=== PATIENT | female | born 1950 | race Caucasian/White ===

== ENCOUNTER → 2016-11-17 | Outpatient (CLI) | payer MEDICARE, BC ==
[2016-11-17 09:54] LABS: Basophils % (A) 1 %; CH 29.2; CHCM 33.2; Eosinophils # (A) 0.1 k/uL (0-0.7); Eosinophils % (A) 3 %; HCT 42.7 % (34.0-46.0); HDW 2.36; HGB 14.2 gm/dL (11.4-16.0); Luc # (Auto) 0.13; Luc % (Auto) 3; Lymphocytes # (A) 0.8 k/uL (1.0-4.8); Lymphocytes % (A) 17 %; MCH 29.5 pg (25.0-35.0); MCHC 33.3 g/dL (31.0-37.0); MCV 88.6 fL (80.0-100.0); Mean Platelet Volume 7.1; Monocytes # (A) 0.3 k/uL (0-1.0); Monocytes % (A) 7 %; Neutrophils # (A) 3.1 k/uL (1.3-7.7); Neutrophils % (A) 69 %; RBC 4.82 m/uL (3.80-5.40); RDW 13.2 % (11.5-15.5); WBC 4.4 k/uL (3.8-10.6); WBC (Perox) 4.74
[2016-11-17 10:17] LABS: ALT 32 U/L (9-52); AST 25 U/L (14-36); Alkaline Phosphatase 85 U/L (38-126); Anion Gap 8 mmol/L; Blood Urea Nitrogen 13 mg/dL (7-17); Calcium 9.2 mg/dL (8.4-10.2); Carbon Dioxide 25 mmol/L (22-30); Chloride 106 mmol/L (98-107); Cholesterol 211 mg/dL (<200); Glucose 98 mg/dL (74-99); HDL Cholesterol 65 mg/dL (40-60); Non-African American GFR(MDRD) >60 (>60 ml/min/1.73 sqM); Potassium 4.2 mmol/L (3.5-5.1); Sodium 139 mmol/L (137-145); Total Bilirubin 1.2 mg/dL (0.2-1.3); Total Protein 5.7 g/dL (6.3-8.2)
[2016-11-17 11:05] LABS: Hepatitis C Virus IgG Ab Negative (Negative)
[2016-11-17 11:21] LABS: C Reactive Protein 5.5 mg/L (<10.0)
[2016-11-17 14:29] LABS: Erythrocyte Sedimentation Rate 8 mm/hr (0-20)
[2016-11-17 16:36] LABS: Gliadin AB IgA, Deaminated NEGATIVE (NEGATIVE); Gliadin AB IgG, Deaminated NEGATIVE (NEGATIVE); Gliadin AB IgG, Unit <0.4 U/mL; Tis Transglutaminase IgA Unit <0.5 AI; Tis Transglutaminase IgG Unit <0.8 U/mL
== END | disposition home or self-care (01) ==
LOC: LABWHC1 09:18
PROVIDERS: ATTEND Internal Medicine
DX: K58.9 Irritable bowel syndrome, unspecified (principal); N95.1 Menopausal and female climacteric states; E55.9 Vitamin D deficiency, unspecified; Z13.6 Encounter for screening for cardiovascular disorders
CPT/HCPCS: 36415; 80053; 80061; 82306; 83516; 84443; 85025; 85652; 86140; 86803

== ENCOUNTER → 2016-12-07 | Outpatient (CLI) | payer MEDICARE, BC ==
--- NOTE | 2016-12-07 09:33 | MM ---
Reason for exam: additional evaluation requested from abnormal screening. Last mammogram was performed less than 1 month ago. History: Patient is postmenopausal, has history of endometrial cancer at age 65, and has history of other cancer at age 46. Benign excisional biopsy of both breasts, 1970. Took hormonal contraceptives for 1 year beginning at age 20. Physical Findings: Nurse did not find any significant physical abnormalities on exam. MG 3D Work Up W/Cad RT CCRM, CCRL, and spot compression CC view(s) were taken of the right breast. Prior study comparison: December 02, 2016, bilateral MG 3d screening mammo w/cad. November 28, 2014, bilateral MG screening mammo w CAD. The breast tissue is heterogeneously dense. This may lower the sensitivity of mammography. Finding: There is a typically benign equal density (isodense) mass located 6 cm from the nipple in the right breast. No persistant spicutation. No significant changes in finding since November 28, 2014. These results were verbally communicated with the patient and result sheet given to the patient on 12/07/16. ASSESSMENT: Benign, BI-RAD 2 RECOMMENDATION: Return to routine screening mammogram schedule for both breasts.
== END ==
LOC: RADMAMWWP 08:16
PROVIDERS: ATTEND Internal Medicine
DX: R92.8 Other abnormal and inconclusive findings on diagnostic imaging of breast (principal)
CPT/HCPCS: G0206; G0279

== ENCOUNTER → 2018-02-13 | Outpatient (CLI) | payer MEDICARE ==
--- NOTE | 2018-02-13 16:07 | BD ---
EXAMINATION TYPE: Axial Bone Density DATE OF EXAM: 02/13/2018 CLINICAL HISTORY: Osteoporosis screening. Postmenopausal female. Height: 62 inches Weight: 117 FRAX RISK QUESTIONS: Alcohol (3 or more units per day): no Family History (Parent hip fracture): no Glucocorticoids (More than 3mos): no (Ex: prednisone, prednisolone, methylprednisolone, dexamethasone, and hydrocortisone). History of Fracture in Adulthood: no Secondary Osteoporosis: 1. Type 1 Diabetes: no 2. Hyperthyroidism: no 3. Menopause before 45: yes, age 46 4. Malnutrition: no 5. Chronic liver disease: no Rheumatoid Arthritis: no Current Tobacco Use: no RISK FACTORS HISTORY OF: Family History of Osteoporosis: unsure Active: yes Diet low in dairy products/other sources of calcium: no Postmenopausal woman: yes Take estrogen and/or progesterone medications: not now How long: hormonal contraceptives about 1 year Lost more than 2 inches in height since high school: yes Frequent falls: no Poor Health: somewhat Hyperparathyroidism: no Adrenal Insufficiency: no MEDICATIONS: Prednisone or other steroids: no Thyroid Medications: no Osteoporosis Medications: no Additional Medications: Vitamin D with calcium Additional History: cervical CA age 65, non-Hodgkins lymphoma-chemo & radiation, osteoarthritis, dege nerative disc disease, lower back "swells" sometimes, HX "tumors" lower back but no back surgery.. EXAM MEASUREMENTS: Bone mineral densitometry was performed using the [employer] System. Bone mineral density as measured about the Lumbar spine is: ----- L1-L4(G/cm2): 1.067 T Score Values are as follows: ----- L2: -1.3 ----- L3: -1.1 ----- L4: -0.1 ----- L1-L4: -0.9 Bone mineral density not previously done at this facility; done elsewhere some years ago Bone mineral density about the R hip (g/cm2): 0.736 Bone mineral density about the L hip (g/cm2): 0.744 T Score values are as follows: -----R Neck: -2.2 -----L Neck: -2.1 -----R Total: -2.2 -----L Total: -2.1 Bone mineral density not previously done at this facility; done elsewhere some years ago IMPRESSION: Osteopenia (T Score between -2.5 and -1). There is slightly increased risk of fracture and the patient may be considered for treatment. Re-Screen 2-5 years. NOTE: T-SCORE=SD OF THE YOUNG ADULT MEAN.
--- NOTE | 2018-02-14 13:09 | MM ---
Reason for exam: screening (asymptomatic). Last mammogram was performed 1 year and 2 months ago. History: Patient is postmenopausal, has history of endometrial cancer at age 65, and has history of other cancer at age 46. Benign excisional biopsy of both breasts, 1970. Took hormonal contraceptives for 1 year beginning at age 20. Physical Findings: A clinical breast exam by your physician is recommended on an annual basis and results should be correlated with mammographic findings. MG 3D Screening Mammo W/Cad Bilateral CC and MLO view(s) were taken. Prior study comparison: December 07, 2016, right breast MG 3d work up w/cad RT. December 02, 2016, bilateral MG 3d screening mammo w/cad. The breast tissue is heterogeneously dense. This may lower the sensitivity of mammography. No significant changes when compared with prior studies. ASSESSMENT: Benign, BI-RAD 2 RECOMMENDATION: Routine screening mammogram of both breasts in 1 year.
== END | disposition home or self-care (01) ==
LOC: RADMAMWWP 11:58
PROVIDERS: ATTEND Obstetrics & Gynecology
DX: Z12.31 Encounter for screening mammogram for malignant neoplasm of breast (principal); M85.80 Other specified disorders of bone density and structure, unspecified site; Z78.0 Asymptomatic menopausal state
CPT/HCPCS: 77063; 77067; 77080

== ENCOUNTER → 2018-02-13 | Outpatient (CLI) | payer MEDICARE ==
--- NOTE | 2018-02-14 08:03 | MR ---
MR brain without contrast HISTORY: Headache Multiplanar multisequence imaging through the brain Comparison prior brain MRI dated 2011 There is no restricted diffusion. Focus of hyperintensity is present on inversion recovery T2-weighte d sequences within the region of the external capsule on the right somewhat more conspicuous than on prior exam. There is no hemorrhage or hydrocephalus. There are normal vascular flow voids. Cerebellop ontine angles, corpus callosum, pituitary, cervical medullary junction are normal. Orbits show symmet art appearance. Mucosal disease present within the maxillary sinus, ethmoid air cells. IMPRESSION: No significant interval change. Indeterminate focus of white matter demyelination of ques tionable clinical significance is essentially stable.
== END | disposition home or self-care (01) ==
LOC: RADMRIMAIN 15:40
PROVIDERS: ATTEND Internal Medicine
DX: R51 Headache (principal)
CPT/HCPCS: 70551

== ENCOUNTER → 2019-11-24 | Outpatient (CLI) | payer MEDICARE, BC ==
--- NOTE | 2019-11-26 06:22 | PE ---
EXAMINATION TYPE: PET CT fusion skull to thigh DATE OF EXAM: 11/24/2019 COMPARISON: Whole body CT November 09, 2019 and older studies HISTORY: Non-Hodgkin lymphoma diagnosed 1996 all over body per patient. TECHNIQUE: Following the intravenous administration of 10.86 mCi of F-18 FDG, whole body images are performed from the skull base to the midthigh. Images are reviewed on the computer in the coronal, a xial, and sagittal planes. Reconstructed rotating images are created on independent workstation and reviewed on the computer. A noncontrast CT is performed in conjunction with the PET scan. SCAN: Subsequent Scan FINDINGS: Median SUV mediastinum: 1.62 Median SUV liver: 2.27 SKULL BASE AND NECK: No areas of abnormal hypermetabolic uptake. CHEST, MEDIASTINUM, AND HILAR REGION: Asymmetric left apical masslike consolidation or scarring exten ding medially redemonstrated near axial image 79. Additional focal scarring or atelectasis medial lef t lower lung axial image 132 is redemonstrated. Tiny right pleural effusion is ametabolic. No suspicious areas of abnormal hypermetabolic uptake or adenopathy. ABDOMEN AND PELVIS: Normal excretion is present. No suspicious areas of abnormal hypermetabolic uptak e. Liver and spleen felt within normal limits in size without suspicious hypermetabolic uptake. OSSEOUS STRUCTURES: No areas of suspicious hypermetabolic uptake. OTHER CT: The 6 to 7 mm posterior left breast nodule or nodular tissue axial image 129 does not show abnormal hypermetabolic uptake. Slightly larger lesion noted right breast axial image 127 is also derrick tabolic. Evidence of old granulomatous disease with calcified right hilar lymph nodes and a few punctate calci fications scattered throughout the spleen. Cholecystectomy clips are noted. Left subclavian Mediport catheter terminates in SVC. Uterus is noted surgically absent. Slight scoliotic curvature with multilevel spurring the spine. Mild to moderate calcified plaque of a bdominal aortic stents into branch vessels. IMPRESSION: No areas of suspicious hypermetabolic uptake or enlarged adenopathy to suggest active carlos plastic or lymphoma recurrence. Advise mammogram and ultrasound follow-up for areas of concern in bot h breasts.
== END | disposition home or self-care (01) ==
LOC: RADPETMAIN 08:50
PROVIDERS: ATTEND Internal Medicine
DX: C85.99 Non-Hodgkin lymphoma, unspecified, extranodal and solid organ sites (principal)
CPT/HCPCS: 78815; A9552

== ENCOUNTER → 2019-12-12 | Outpatient (CLI) | payer MEDICARE, BC ==
--- NOTE | 2019-12-13 08:05 | MM ---
Reason for exam: additional evaluation requested from prior study. Last mammogram was performed 1 year and 10 months ago. History: Patient is postmenopausal, has history of endometrial cancer at age 65, and has history of other cancer at age 46. Benign excisional biopsy of both breasts, 1970. Took hormonal contraceptives for 1 year beginning at age 20. Physical Findings: Nurse did not find any significant physical abnormalities on exam. MG 3D Diag Mammo W/Cad TIFFANI Bilateral CC and MLO view(s) were taken. Prior study comparison: February 13, 2018, bilateral MG 3d screening mammo w/cad. December 07, 2016, right breast MG 3d work up w/cad RT. The breast tissue is heterogeneously dense. This may lower the sensitivity of mammography. Benign calcifications. There is chronic nodularity bilaterally. These results were verbally communicated with the patient and result sheet given to the patient on 12/12/19. ASSESSMENT: Benign, BI-RAD 2 RECOMMENDATION: Routine screening mammogram of both breasts in 1 year.
--- NOTE | 2019-12-13 08:08 | USB ---
Reason for exam: additional evaluation requested from prior study. History: Patient is postmenopausal, has history of endometrial cancer at age 65, and has history of other cancer at age 46. Benign excisional biopsy of both breasts, 1970. Took hormonal contraceptives for 1 year beginning at age 20. US Breast BILAT Technologist: Jacqueline Kendall Right complete breast ultrasound includes all four quadrants, the retroareolar region and axilla. Finding demonstrates a 0.4 x 0.5 x 0.3cm hypoechoic lesion at 10 o'clock. Left complete breast ultrasound includes all four quadrants, the retroareolar region and axilla. Finding demonstrates a 0.5 x 0.5 x 0.3cm cystic lesion at 10 o'clock and a 1.0 x 0.7 x 0.3cm cystic lesion at 1 o'clock. These results were verbally communicated with the patient and result sheet given to the patient on 12/12/19. ASSESSMENT: Suspicious, BI-RAD 4 RECOMMENDATION: Ultrasound core biopsy of the right breast. (10 o'clock) Called Dr. Duarte's office with mammographic findings and has scheduled an appointment for the patient for 01/04/20 at 11:[address] Mirza. Biopsy scheduled for 01/07/20 at 10:30. PRELIMINARY REPORT CALLED AND FAXED TO DR. MIRZA ON 12/13/19.
== END | disposition home or self-care (01) ==
LOC: RADMAMWWP 14:17
PROVIDERS: ATTEND Internal Medicine
DX: R93.89 Abnormal findings on diagnostic imaging of other specified body structures (principal); R94.8 Abnormal results of function studies of other organs and systems
CPT/HCPCS: 77066; 76641; G0279; 77062

== ENCOUNTER → 2019-12-21 | Outpatient (CLI) | payer MEDICARE, BC ==
[2019-12-21 12:49] LABS: HCT 42.1 % (34.0-46.0); HGB 13.9 gm/dL (11.4-16.0); MCH 30.4 pg (25.0-35.0); MCHC 32.9 g/dL (31.0-37.0); MCV 92.2 fL (80.0-100.0); Mean Platelet Volume 7.5; Platelet Count 232 k/uL (150-450); RBC 4.57 m/uL (3.80-5.40); RDW 13.2 % (11.5-15.5)
[2019-12-21 22:42] LABS: African American GFR (CKD) 67.5 (60.0-200.0); Albumin/Globulin Ratio 2.86 (1.60-3.17); Anion Gap 7.8 mmol/L (4.00-12.00); Calcium 9.4 mg/dL (8.7-10.3); Carbon Dioxide 28.2 mmol/L (21.6-31.8); Globulin 1.4 g/dL (1.6-3.3); Non-African American GFR(CKD) 58.2 (60.0-200.0); Total Protein 5.4 g/dL (6.2-8.2)
[2019-12-21 22:52] LABS: Prolactin 4.2 ng/mL (2.8-29.2); T4, Free (Free Thyroxine) 1.1 ng/dL (0.80-1.80)
== END | disposition home or self-care (01) ==
LOC: LABWHC1 11:44
PROVIDERS: ATTEND Internal Medicine Endocrinology, Diabetes & Metabolism
DX: R23.2 Flushing (principal); R53.83 Other fatigue
CPT/HCPCS: 36415; 80053; 82024; 82533; 82607; 84146; 84439; 84443; 84481; 85027

== ENCOUNTER → 2019-12-21 | Outpatient (CLI) | payer MEDICARE, BC ==
[~2019-12-21] MED LIST: SODIUM CHLORIDE 0.9% 500 ML 500 ML in EMPTY BAG 1 BAG IV PRN
[2019-12-21 10:56] VITALS: BP 151/78; PULSE 79; RESP 16; TEMP 98.2
== END | disposition home or self-care (01) ==
LOC: PROCWHC3 10:09 → EEVIPCON 10:30
PROVIDERS: ATTEND Internal Medicine Endocrinology, Diabetes & Metabolism
DX: R23.2 Flushing (principal)
CPT/HCPCS: 83835

== ENCOUNTER → 2020-01-04 | Outpatient (CLI) | payer MEDICARE, BC ==
[2020-01-04 11:14] VITALS: BP 126/72; PULSE 79; RESP 18; TEMP 98.3
--- NOTE | 2020-01-04 11:39 | P.GSHP ---
History of Present Illness H&P Date: 01/04/20 Chief Complaint: abnormal breast ultrasound Sandra is a 69 year old white female seen in consultation for Dr. Galo with a complaint of an abnormal right breast ultrasound. She had a bilateral mammogram performed on . This was felt to be benign BIRADS 2. She also had a bilateral breast ultrasound performed on the same date which revealed a 0.5 x 0.4 cm lesion at 10:00. In the left breast she was noted to have several cystic lesions. The findings were very suspicious BIRADS 4 and ultrasound-guided core biopsy of the right breast was recommended. She has a history of non-hodgkins lymphoma diagnosed in 1995. She had a PET scan performed on which did not show any suspicious hypermetabolic uptake or enlarged adenopathy to suggest active neoplastic disease or lymphoma recurrence. She has been in remission for 18 years. She had a recent complaint of dizzyness and weight loss, (21 pounds). She states this has improved, she has not gained any weight back at this time. She does not feel any lumps masses or nodules in either breast. She is not complaining of any breast pain. She is not complaining of any nipple discharge or skin changes. She has not noted any enlarged lymph nodes in her neck axilla or groin. Caffeine: 1 cup coffee/day Nicotine: Negative Theophylline: Occasional Family history: patient: non hodgkins lymphoma, SCC female organs (had a LENNY) 2 cousins maternal: non hodgkins lymphoma daughter: non hodgkins lymphoma Hormonal History: menarche: 17 , misscarriage:2, breast fed: yes, age at first : 19, tubal at 25 menopause: 46 secondary to chemo BCP: none hormones: none Surgical history: 1. Total abdominal hysterectomy 2. Breast biopsy benign 3. Appendectomy 4. Abdominal hernias 5. Pleurodesis secondary to pleural fluid collecting in the lungs 6. Cholecystectomy 7. Tubal ligation Medical History: none Social History: Attending: Negative Alcohol: Occasional Drugs: Negative - Constitutional Constitutional: Denies chills, Denies fever - EENT Eyes: bilateral blurred vision, denies pain Ears: deny: decreased hearing, tinnitus Ears, nose, mouth and throat: Denies headache, Denies sore throat - Breasts Breasts: bilateral: as per HPI - Cardiovascular Cardiovascular: Reports shortness of breath, Denies chest pain - Respiratory Respiratory: Denies cough, Denies 7 - Gastrointestinal Gastrointestinal: Denies abdominal pain, Denies diarrhea, Denies nausea, Denies vomiting - Genitourinary (Female) Genitourinary: Denies dysuria, Denies hematuria - Menstruation Menstruation: Reports post hysterectomy - Musculoskeletal Comment: lymphedema left leg - Integumentary Integumentary: Denies pruritus, Denies rash - Neurological Neurological: Denies numbness, Denies weakness - Psychiatric Psychiatric: Denies anxiety, Denies depression - Endocrine Endocrine: Reports fatigue, Reports weight change - Hematologic/Lymphatic Comment: history of non hodgkins lymphoma - Allergic/Immunologic Allergic/Immunologic: Reports as per HPI Past Medical History Past Medical History: Cancer, Deep Vein Thrombosis (DVT) Additional Past Medical History / Comment(s): left leg Lymphedema, migraines, heart "regurgitaion", non hodgkins lymphoma, History of Any Multi-Drug Resistant Organisms: None Reported Past Surgical History: Appendectomy, Breast Surgery, Cholecystectomy, Hernia Repair, Hysterectomy, Tubal Ligation Additional Past Surgical History / Comment(s): PORT-A-CATH STILL IN PLACE. EXP LAPARATOMY (ABD TUMOR RELATED TO LYMPHOMA). BILATERAL BREAST BX -NEG. , hx chest tube lung surgery Past Anesthesia/Blood Transfusion Reactions: No Reported Reaction Additional Past Anesthesia/Blood Transfusion Reaction / Comment(s): awake during general anesthesia for a surgery Smoking Status: Never smoker - Past Family History Mother Family Medical History: No Reported History Medications and Allergies Home Medications Medication Instructions Recorded Confirmed Type SUMAtriptan succinate [Imitrex] 50 mg PO DAILY PRN 12/08/15 01/04/20 History Cimetidine [Tagamet] 200 mg PO QID 12/19/19 01/04/20 History Allergies Allergy/AdvReac Type Severity Reaction Status Date / Time morphine Allergy Severe Nausea & Verified 01/04/20 11:07 Vomiting cholestyramine Allergy Rash/Hives Unverified 01/04/20 11:07 meperidine HCl [From Demerol] Allergy Unknown Verified 01/04/20 11:07 pantoprazole Allergy Rash/Hives Unverified 01/04/20 11:07 warfarin sodium Allergy Unknown Verified 01/04/20 11:07 [From Coumadin] Surgical - Exam BMI 21.9 - General well developed, well nourished, no distress - Eyes normal ocular movement - ENT no hearing loss, no congestion - Neck no masses, trachea midline - Respiratory normal expansion, normal respiratory effort, clear to auscultation - Cardiovascular Rhythm: regular Heart Sounds: normal: S1, S2 - Abdomen Abdomen: soft, non tender, no guarding, no rigid, no rebound - Integumentary swelling left lower leg - Neurologic no disoriented, no combative - Musculoskeletal normal gait, normal posture - Psychiatric oriented to time, oriented to person, oriented to place, speech is normal, memory intact breast exam: BRA: 34B inspection: grade 2 ptosis bilateral palpation: Right breast: Multi-positional exam well-healed scar from prior surgery, fibrocystic changes Right axilla: No adenopathy of concern Left breast: Multi-positional exam no dominant masses or nodules of concern Left axilla: No adenopathy of concern Results Mammogram and ultrasound results reviewed Assessment and Plan Assessment: Impression: 1. prior history of non hodgkins lymphoma 2. Fibrocystic breast changes 3. Ultrasound abnormality right breast 4. 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 Ultrasound-guided core biopsy right breast 2. Continued medical management of medical conditions CC: Dr. Galo, Dr. Duarte Risks and benefits of the procedure of ultrasound core biopsy were discussed with the patient. Risks include but are not limited to bleeding, infection, r eaction to the anesthetic. Additionally the lesion could be discordant and a biopsy in the operating room could be recommended. She understands and wishes to proceed. encounter 30 minutes, > 50% of time in planning and counselling
== END | disposition home or self-care (01) ==
LOC: WWCWWP 10:57
PROVIDERS: ATTEND Surgery
DX: Z53.9 Procedure and treatment not carried out, unspecified reason (principal)

== ENCOUNTER → 2020-01-07 | Day surgery (SDC) | payer MEDICARE, BC ==
[2020-01-07 09:45] VITALS: RESP 16; TEMP 97.7
[2020-01-07 11:25] VITALS: BP 123/74; PULSE 79
--- NOTE | 2020-01-07 15:27 | USB ---
EXAMINATION TYPE: US biopsy breast VAD RT, MG post biopsy diagnostic mammo RT wo CAD DATE OF EXAM: 01/07/2020 CLINICAL HISTORY: 69-year-old female R92.8 Abnormal Mammogram. TECHNIQUE: Ultrasound guided core biopsy of 10:00 right breast. COMPARISON: 12/12/2019 12/02/2016 FINDINGS: The procedure of ultrasound guided core biopsy was explained to the patient. Benefits, alternatives, and risks were discussed. An informed consent was then obtained. The patient was placed in supine positioning for imaging and for the procedure. The overlying skin was prepped and draped in usual sterile fashion. Lidocaine was used as anesthetic into the skin and subcutaneous tissue up to area of concern in the right breast. A small 4 mm lesion at the 10:00 right breast was targeted. Under ultrasound guidance, a 13-gauge vacuum-assisted mammotome biopsy gun device was used to obtain 5 core samples. Following this, a wing clip was left in lesion. The patient tolerated the procedure well without any immediate complication. The patient was kept in the radiology department for short stay after the procedure and then discharged home in stable condition. Post procedure mammogram shows the clip in the upper outer quadrant. Chronic nodularity in the lower inner quadrant is noted. IMPRESSION: Successful, uncomplicated ultrasound guided core biopsy of a small 4 mm lesion 10:00 right breast, full pathology results to follow. 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 Coarse intraductal mineralizations are identified, see note. Appropriately controlled immunohistochemical studies for smooth muscle myosin heavy chain, p63 and cytokeratin 5/6 document an absence of myoepithelial cells around tumor ductules confirming a focus of infiltrating adenocarcinoma. Recommendation Surgical consult of the right breast. JACQUID
== END ==
LOC: RADUSWWP 09:30
PROVIDERS: ATTEND Surgery
DX: C50.411 Malignant neoplasm of upper-outer quadrant of right female breast (principal); Z17.1 Estrogen receptor negative status [ER-]
CPT/HCPCS: 88305; 88342; 88341; 77065; 19083; A4648; J2001

== ENCOUNTER → 2020-01-11 | Outpatient (CLI) | payer MEDICARE, BC ==
[2020-01-11 13:16] VITALS: BP 117/76; PULSE 87; RESP 18; TEMP 98
--- NOTE | 2020-01-11 14:35 | P.PN ---
Subjective Progress Note Date: 01/11/20 Principal diagnosis: stage 1B right breast cancer Sandra is a 69 year old white female seen in consultation for Dr. Gaol with a complaint of an abnormal right breast ultrasound. She had a bilateral mammogram performed on . This was felt to be benign BIRADS 2. She also had a bilateral breast ultrasound performed on the same date which revealed a 0.5 x 0.4 cm lesion at 10:00. In the left breast she was noted to have several cystic lesions. The findings were very suspicious BIRADS 4 and ultrasound-guided core biopsy of the right breast was recommended. She has a history of non-hodgkins lymphoma diagnosed in 1995. She had a PET scan performed on which did not show any suspicious hypermetabolic uptake or enlarged adenopathy to suggest active neoplastic disease or lymphoma recurrence. She has been in remission for 18 years. She had a recent complaint of dizzyness and weight loss, (21 pounds). She states this has improved, she has not gained any weight back at this time. She does not feel any lumps masses or nodules in either breast. She is not complaining of any breast pain. She is not complaining of any nipple discharge or skin changes. She has not noted any enlarged lymph nodes in her neck axilla or groin. She had an ultrasound guided core biopsy on 01-07-20. This was positive for a 4mm infiltrating ductal cancer. The patient has no complaints related to the biopsy. Caffeine: 1 cup coffee/day Nicotine: Negative Theophylline: Occasional Family history: patient: non hodgkins lymphoma, SCC female organs (had a LENNY) 2 cousins maternal: non hodgkins lymphoma daughter: non hodgkins lymphoma Hormonal History: menarche: 17 , misscarriage:2, breast fed: yes, age at first : 19, tubal at 25 menopause: 46 secondary to chemo BCP: none hormones: none Surgical history: 1. Total abdominal hysterectomy 2. Breast biopsy benign 3. Appendectomy 4. Abdominal hernias 5. Pleurodesis secondary to pleural fluid collecting in the lungs 6. Cholecystectomy 7. Tubal ligation Medical History: none Social History: Attending: Negative Alcohol: Occasional Drugs: Negative - Constitutional Constitutional: Denies chills, Denies fever - EENT Eyes: bilateral blurred vision, denies pain Ears: deny: decreased hearing, tinnitus Ears, nose, mouth and throat: Denies headache, Denies sore throat - Breasts Breasts: bilateral: as per HPI - Cardiovascular Cardiovascular: Reports shortness of breath, Denies chest pain - Respiratory Respiratory: Denies cough - Gastrointestinal Gastrointestinal: Denies abdominal pain, Denies diarrhea, Denies nausea, Denies vomiting - Genitourinary (Female) Genitourinary: Denies dysuria, Denies hematuria - Menstruation Menstruation: Reports post hysterectomy - Musculoskeletal Comment: lymphedema left leg - Integumentary Integumentary: Denies pruritus, Denies rash - Neurological Neurological: Denies numbness, Denies weakness - Psychiatric Psychiatric: Denies anxiety, Denies depression - Endocrine Endocrine: Reports fatigue, Reports weight change - Hematologic/Lymphatic Comment: history of non hodgkins lymphoma - Allergic/Immunologic Allergic/Immunologic: Reports as per HPI Objective - Vital Signs Vital signs: Vital Signs Temp 98.0 F 01/11/20 13:10 Pulse 87 01/11/20 13:10 Resp 18 01/11/20 13:10 BP 117/76 01/11/20 13:10 Pulse Ox 98 01/11/20 13:10 Intake & Output 01/10/20 01/11/20 01/11/20 18:59 06:59 18:59 Weight 52.617 kg - Exam BMI 20.5 - Constitutional General appearance: Present: average body habitus - EENT Eyes: Present: EOMI ENT: Present: hearing grossly normal - Neck Neck: Present: normal ROM - Respiratory Respiratory: bilateral: CTA - Cardiovascular Rhythm: regular Heart sounds: normal: S1, S2 - Integumentary Integumentary Comment(s): Right breast core biopsy site clean and dry, no evidence of infection Integumentary: Present: normal turgor Assessment and Plan Assessment: Impression: 1. right breast stage 1B invasive ductal cancer 2. Non-Hodgkin's lymphoma diagnosed in 1995 she had a PET scan on which did not show any suspicious evidence of active disease 3. 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 Needle localization partial mastectomy, oncoplastic tissue transfer, sentinel node biopsy, possible axillary node dissection 2. Present case at tumor board 3. Meeting with radiation oncology 4. Medical clearance with Dr. Duarte Of importance is the fact that the patient had previous right axillary surgery. She is uncertain as to how many lymph nodes were removed. This was done many years ago. She is going to try to obtain that operative report. We will review her radiographs to see if there appears to be any lymph nodes in this area. Depending on results of this may depend on whether sentinel node biopsy is attempted. She has been given the option of partial mastectomy versus mastectomy plus or minus reconstruction. At this time she wishes to pursue partial mastectomy. Additionally we have talked about sentinel node biopsy possible axillary node dissection. She understands risks and benefits of surgery to include but not be limited to bleeding, infection, possible reaction to the anesthetic. She understands that there is a risk of lymphedema/decreased sensation to the inner arm/anterior to the thoracodorsal/long thoracic nerves of axillary dissection would be performed. She wishes to proceed. The patient is in the process of moving and would like her surgery cannot be done before February 24. Cc: Dr. Galo, Dr. Duarte encounter 30 minutes, > 50% of time spent in planning and counselling
== END | disposition home or self-care (01) ==
LOC: WWCWWP 12:58
PROVIDERS: ATTEND Surgery
DX: Z53.9 Procedure and treatment not carried out, unspecified reason (principal)

== ENCOUNTER → 2020-03-18 | Day surgery (SDC) | payer MEDICARE, BC ==
[2020-03-11 11:34] VITALS: BMI 21.4
--- NOTE | 2020-03-17 10:59 | P.PN ---
Subjective Progress Note Date: 03/17/20 Principal diagnosis: stage 1 right breast cancer stage 1B right breast cancer Sandra is a 69 year old white female seen in consultation for Dr. Galo with a complaint of an abnormal right breast ultrasound. She had a bilateral mammogram performed on . This was felt to be benign BIRADS 2. She also had a bilateral breast ultrasound performed on the same date which revealed a 0.5 x 0.4 cm lesion at 10:00. In the left breast she was noted to have several cystic lesions. The findings were very suspicious BIRADS 4 and ultrasound-guided core biopsy of the right breast was recommended. She has a history of non-hodgkins lymphoma diagnosed in 1995. She had a PET scan performed on which did not show any suspicious hypermetabolic uptake or enlarged adenopathy to suggest active neoplastic disease or lymphoma recurrence. She has been in remission for 18 years. She had a recent complaint of dizzyness and weight loss, (21 pounds). She states this has improved, she has not gained any weight back at this time. She does not feel any lumps masses or nodules in either breast. She is not complaining of any breast pain. She is not complaining of any nipple discharge or skin changes. She has not noted any enlarged lymph nodes in her neck axilla or groin. She had an ultrasound guided core biopsy on 01-07-20. This was positive for a 4mm infiltrating ductal cancer. ER-Pr- G1 The patient has no complaints related to the biopsy. Caffeine: 1 cup coffee/day Nicotine: Negative Theophylline: Occasional Family history: patient: non hodgkins lymphoma, SCC female organs (had a LENNY) 2 cousins maternal: non hodgkins lymphoma daughter: non hodgkins lymphoma Hormonal History: menarche: 17 , misscarriage:2, breast fed: yes, age at first : 19, tubal at 25 menopause: 46 secondary to chemo BCP: none hormones: none Surgical history: 1. Total abdominal hysterectomy 2. Breast biopsy benign 3. Appendectomy 4. Abdominal hernias 5. Pleurodesis secondary to pleural fluid collecting in the lungs 6. Cholecystectomy 7. Tubal ligation Medical History: none Social History: Attending: Negative Alcohol: Occasional Drugs: Negative - Constitutional Constitutional: Denies chills, Denies fever - EENT Eyes: bilateral blurred vision, denies pain Ears: deny: decreased hearing, tinnitus Ears, nose, mouth and throat: Denies headache, Denies sore throat - Breasts Breasts: bilateral: as per HPI - Cardiovascular Cardiovascular: Reports shortness of breath, Denies chest pain - Respiratory Respiratory: Denies cough - Gastrointestinal Gastrointestinal: Denies abdominal pain, Denies diarrhea, Denies nausea, Denies vomiting - Genitourinary (Female) Genitourinary: Denies dysuria, Denies hematuria - Menstruation Menstruation: Reports post hysterectomy - Musculoskeletal Comment: lymphedema left leg - Integumentary Integumentary: Denies pruritus, Denies rash - Neurological Neurological: Denies numbness, Denies weakness - Psychiatric Psychiatric: Denies anxiety, Denies depression - Endocrine Endocrine: Reports fatigue, Reports weight change - Hematologic/Lymphatic Comment: history of non hodgkins lymphoma - Allergic/Immunologic Allergic/Immunologic: Reports as per HPI Objective - Exam BMI 20.5 - Constitutional General appearance: Present: average body habitus - EENT Eyes: Present: EOMI ENT: Present: hearing grossly normal - Neck Neck: Present: normal ROM - Respiratory Respiratory: bilateral: CTA - Cardiovascular Rhythm: regular Heart sounds: normal: S1, S2 - Gastrointestinal General gastrointestinal: Present: soft - Integumentary Integumentary: Present: normal turgor - Musculoskeletal Musculoskeletal: Present: gait normal - Psychiatric Psychiatric: Present: A&O x's 3, appropriate affect - Additional findings Additional findings: Bra: 34B Inspection: Grade 2 ptosis bilateral Palpation: Right breast: Multiple positional exam revealed scar from prior surgery, fibrocystic changes Right axilla: No adenopathy of concern Left breast: Multiple positional exam no dominant masses or nodules of concern Left axilla: No adenopathy of concern Assessment and Plan Assessment: Impression: 1. right breast stage 1B invasive ductal cancer 2. Non-Hodgkin's lymphoma diagnosed in 1995 she had a PET scan on which did not show any suspicious evidence of active disease 3. 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 Needle localization partial mastectomy, oncoplastic tissue transfer, sentinel node biopsy, possible axillary node dissection 2. Present case at tumor board 3. Meeting with radiation oncology 4. Medical clearance with Dr. Duarte Of importance is the fact that the patient had previous right axillary surgery. She is uncertain as to how many lymph nodes were removed. This was done many years ago. She is going to try to obtain that operative report. We will review her radiographs to see if there appears to be any lymph nodes in this area. Depending on results of this may depend on whether sentinel node biopsy is attempted. She has been given the option of partial mastectomy versus mastectomy plus or minus reconstruction. At this time she wishes to pursue partial mastectomy. Additionally we have talked about sentinel node biopsy possible axillary node dissection. She understands risks and benefits of surgery to include but not be limited to bleeding, infection, possible reaction to the anesthetic. She understands that there is a risk of lymphedema/decreased sensation to the inner arm/anterior to the thoracodorsal/long thoracic nerves of axillary dissection would be performed. She wishes to proceed. The patient is in the process of moving and would like her surgery to not be done before February 24.
[~2020-03-18] MED LIST changes: +ALPRAZolam 0.25 MG TAB PO PRN; +DEXAMETHASONE SOD PHOSPHATE 4 MG/ML 1 ML VIAL IV ONE; +GLYCOPYRROLATE 0.2 MG/ML 2 ML VIAL ONE; +HEPARIN SODIUM,PORCINE 5,000 UNIT/ML 1 ML VIAL SQ PRN; +HYDROmorphone 0.5 MG/0.5 ML SYRINGE IVP PRN; +LACTATED RINGERS 1,000 ML IV SCH; +LIDOCAINE 1% (10MG/ML) FOR IV START INTRADERMA ONE; +LIDOCAINE 1% INJ 10MG/ML (20 ML MDV) ONE; +LIDOCAINE 1% INJ 10MG/ML (20 ML MDV) SQ ONE; +MIDAZOLAM 2 MG/2 ML VIAL ONE; +NEOSTIGMINE 1 MG/ML 10 ML VIAL ONE; +ONDANSETRON 4 MG/2 ML VIAL IVP ONE; +ONDANSETRON 4 MG/2 ML VIAL ONE; +PROPOFOL 10 MG/ML 20 ML VIAL IV ONE; +Pre Op ABX Message 1 EACH MISC MISCELLANE ONE; +ROCURONIUM 10 MG/ML (10 ML VIAL) IV ONE; -SODIUM CHLORIDE 0.9% 500 ML 500 ML in EMPTY BAG 1 BAG IV PRN; +SUCCINYLCHOLINE CHLORIDE 100 MG/5 ML SYR IV ONE; +fentaNYL (PF) 50 MCG/ML 2 ML AMP ONE
--- NOTE | 2020-03-18 11:45 | P.NAPBC ---
NAPBC Queries - NAPBC Queries Was patient's case review presented at [facility] tumor board? If no, comment.: Yes Was patient's pathology reviewed at [facility]? If no, comment.: Yes Was breast conservation surgery offered? If no, comment.: Yes Was sentinel node biopsy offered? If no, comment.: Yes (she has had prior axillary node biopsy for lymphoma so will attempt a SNB) Was diagnosis confirmed by percutaneous core biopsy? If no, comment.: Yes Is patient mastectomy patient?: No Was a preop referral to reconstructive surgeon offered?: No Clinical Stage: stage IA
--- NOTE | 2020-03-18 13:06 | NM ---
EXAMINATION TYPE: NM sentinel node injection DATE OF EXAM: 03/18/2020 COMPARISON: NONE INDICATION: Abnormal mammogram. Informed consent was obtained. A timeout was performed. The area around the right nipple was cleansed with alcohol. The skin was anesthetized with 1% Lidoca ine with sodium bicarbonate. In a single dose, a total of 510 microcuries Technetium 99m Tilmanocept was injected. The patient tolerated the procedure very well. IMPRESSIONS: 1.. Successful injection for sentinel node evaluation.
--- NOTE | 2020-03-18 14:11 | P.OP ---
Date of Procedure: 03/18/20 Preoperative Diagnosis: right breast invasive ductal carcinoma stage IA Postoperative Diagnosis: Same Procedure(s) Performed: Right breast needle localization lumpectomy Prentice node biopsy Anesthesia: KEITH Surgeon: Rae Mirza Estimated Blood Loss (ml): 10 IV fluids (ml): 450 Pathology: other (Prentice lymph node, breast tissue) Condition: stable Disposition: same day Indications for Procedure: Right breast invasive ductal carcinoma Operative Findings: Dense breast tissue Description of Procedure: The patient is a 69-year-old white female diagnosed with a right breast cancer. After discussion she wished for a lumpectomy and sentinel node biopsy. The patient was taken to the radiology suite and the area of concern was localized by radiology and radioactive substance was injected to identify the sentinel lymph node. The patient was then brought to the operating room and following induction of anesthesia the axilla was interrogated. The radioactivity had traveled to the axilla. The right breast and axilla were prepped and draped in a sterile fashion. An incision was made at the area of greatest radioactivity in the axilla. A radioactive lymph node was identified and this was removed using the Harmonic scalpel. This was a deep axillary node. The 10 second count on the node was 917. The 10 second background count was 22. After the wound was irrigated and we assured that hemostasis was attained the deep tissues were closed using 3-0 Vicryl suture. The skin was closed using a 4-0 Monocryl. Following this the area of the breast was approached. An incision was made and carried down to the shaft of the needle. Surrounding tissue was excised. Posterior dissection was onto the pectoralis major muscle. Specimen was painted for orientation. After the specimen was removed it was radiographed and the area of concern was removed. The wound was irrigated. Titanium clips were placed to annabel the cavity. The tissues were closed using 3-0 Vicryl suture. This was followed by closure of the skin with 4-0 Monocryl. 10 CC of one percent lidocaine were injected into the incision site. The patient tolerated the procedure in stable condition. All instrument and sponge counts were correct at the end of the case.
--- NOTE | 2020-03-18 14:12 | P.DS ---
Providers Attending physician: Rae Mirza Primary care physician: Angel Duarte Plan - Discharge Summary Discharge Rx Participant: No New Discharge Prescriptions: No Action SUMAtriptan succinate [Imitrex] 50 mg PO DAILY PRN PRN Reason: migraines Omeprazole [PriLOSEC] 20 mg PO AC-BRKFST PRN PRN Reason: GERD Discharge Medication List SUMAtriptan succinate [Imitrex] 50 mg PO DAILY PRN 12/08/15 [History] Omeprazole [PriLOSEC] 20 mg PO AC-BRKFST PRN 03/11/20 [History] Follow up Appointment(s)/Referral(s): Rae Mirza MD [STAFF PHYSICIAN] - 1 Week Activity/Diet/Wound Care/Special Instructions: do not drive today may shower after 48 hours Discharge Disposition: HOME SELF-CARE
[2020-03-18 14:31] VITALS: TEMP 98.1
[2020-03-18 15:57] VITALS: RESP 16
[2020-03-18 16:34] VITALS: BP 141/68; PULSE 90
--- NOTE | 2020-03-18 17:10 | MM ---
EXAMINATION TYPE: MG pre op needle loc RT DATE OF EXAM: 03/18/2020 COMPARISON: NONE CLINICAL HISTORY: Abnormal mammogram TECHNIQUE: Needle localization with wire placement and surgical excision of area of concern in the right breast. FINDINGS: The procedure of needle localization with wire placement for surgical excision was explained to the patient. Risk, benefits, and alternatives were discussed. An informed consent was then obtained. A timeout was performed. The overlying skin was prepped and draped in usual sterile fashion. Lidocaine 1% was used as anesthetic into the skin and subcutaneous tissue up to the level of area of concern. A 5 cm needle was used. This was placed via a lateral approach under mammographic guidance. Subsequent 90 degrees mammogram show the needle to be in satisfactory position relative to the targeted area. The wire was placed through the needle and the needle was withdrawn. The wire was fixed to patient's skin. Images were marked for surgeon. The patient tolerated the procedure well without any immediate complication. Specimen: The wire and the targeted surgical clip are identified within the specimen mammogram. IMPRESSION: 1. Successful wire localization and excision. Recommendations: 1. Recommendations are pending pathology results. Pathology Results: Benign A. SENTINEL LYMPH NODE, BIOPSY: Lymph node negative for metastasis. CK7 and AMANDA immunoperoxidase stains are confirmatory (controls appropriate). B. RIGHT BREAST, LUMPECTOMY: Benign breast with fibrocystic changes and focal scar, negative for residual invasive malignancy or DCIS. See Surgical Pathology Cancer Case Summary. Recommendation Follow up mammogram of the right breast in 6 months. Scar but no residual disease found. Appropriate oncologic management recommended. CARO
== END | disposition home or self-care (01) ==
LOC: OR 10:21
PROVIDERS: ATTEND Surgery
DX: C50.911 Malignant neoplasm of unspecified site of right female breast (principal); I89.0 Lymphedema, not elsewhere classified; K21.9 Gastro-esophageal reflux disease without esophagitis; Z85.72 Personal history of non-Hodgkin lymphomas; Z80.7 Family history of other malignant neoplasms of lymphoid, hematopoietic and related tissues; Z98.51 Tubal ligation status; Z92.21 Personal history of antineoplastic chemotherapy; Z90.710 Acquired absence of both cervix and uterus; Z90.89 Acquired absence of other organs; Z90.49 Acquired absence of other specified parts of digestive tract; Z98.890 Other specified postprocedural states; H02.403 Unspecified ptosis of bilateral eyelids; Z85.42 Personal history of malignant neoplasm of other parts of uterus; Z87.09 Personal history of other diseases of the respiratory system; Z86.718 Personal history of other venous thrombosis and embolism; Z79.899 Other long term (current) drug therapy; Z88.5 Allergy status to narcotic agent
CPT/HCPCS: 19301; 38525; 88342; 88307; 88341; 76098; 38792; A9520; J2250; J1644; J1100; J2710; J2405; J2001; J3010; J0330; J2704

== ENCOUNTER → 2020-03-27 | Outpatient (CLI) | payer MEDICARE, BC ==
[2020-03-27 15:47] VITALS: BP 128/73; PULSE 88; RESP 16; TEMP 99
--- NOTE | 2020-03-27 15:51 | P.PN ---
Progress Note - Text Progress Note Date: 03/27/20 Sandra is a 69 year old white female status post right breast needle localization lumpectomy and sentinel node biopsy. The sentinel node was negative for cancer and the lumpectomy specimen did not show any residual invasive malignancy. The clip of concern was removed. The patient tolerated t he procedure without difficulty. The incisions are clean and dry. Physical examination: Lungs: Clear Heart: Regular rate and rhythm Incisions: Clean and dry Impression: Patient status post needle localization and lumpectomy, the area of concern was removed however there was no residual tumor in the specimen the plan is for the patient to follow with medical and radiation oncology; patient is going to decide if she will see medical oncology Follow-up in 4 months CC: Dr. Duarte, Dr. Galo
== END | disposition home or self-care (01) ==
LOC: WWCWWP 15:19
PROVIDERS: ATTEND Surgery
DX: Z53.9 Procedure and treatment not carried out, unspecified reason (principal)

== ENCOUNTER → 2020-08-08 | Outpatient (CLI) | payer MEDICARE, BC ==
[2020-08-08 13:29] VITALS: BP 139/81; PULSE 86; RESP 18; TEMP 98.2
--- NOTE | 2020-08-08 14:02 | P.PN ---
Subjective Progress Note Date: 08/08/20 Principal diagnosis: right breast stage IA invasive ductal cancer stage 1B right breast cancer Sandra is a 69 year old white female seen in consultation for Dr. Galo with a complaint of an abnormal right breast ultrasound. She had a bilateral mammogram performed on . This was felt to be benign BIRADS 2. She also had a bilateral breast ultrasound performed on the same date which revealed a 0.5 x 0.4 cm lesion at 10:00. In the left breast she was noted to have several cystic lesions. The findings were very suspicious BIRADS 4 and ultrasound-guided core biopsy of the right breast was recommended. She has a history of non-hodgkins lymphoma diagnosed in 1995. She had a PET scan performed on which did not show any suspicious hypermetabolic uptake or enlarged adenopathy to suggest active neoplastic disease or lymphoma recurrence. She has been in remission for 18 years. She had a recent complaint of dizzyness and weight loss, (21 pounds). She states this has improved, and she has gained some weight. She underwent ultrasound-guided core biopsy of the right breast 10:00 lesion on . This revealed low-grade infiltrating ductal adenocarcinoma with features of mucinous adenocarcinoma in association with no low nuclear grade DCIS. She subsequently underwent a right breast lumpectomy and sentinel node biopsy on 1520. The lumpectomy revealed no residual invasive malignancy or DCIS and the lymph node was negative for metastatic disease. The clip of concern was removed with the lumpectomy specimen. The patient is doing well post procedure with respect to her breasts. She had an MRI guided radiation therapy. This was done with Dr. Parson; she was her doctor for her non-Hodgkin's lymphoma as well. She has not had any chemotherapy or hormonal therapy. She does not feel any lumps masses or nodules in either breast. She did not have pain initially after the surgery however she does have discomfort at the lumpectomy site which started about at least a month after the surgery. She is not complaining of any nipple discharge or skin changes. She has not noted any enlarged lymph nodes in her neck axilla or groin. Caffeine: 2 cup coffee/day Nicotine: Negative chocolate: Occasional Family history: patient: non hodgkins lymphoma, SCC female organs (had a LENNY) 2 cousins maternal: non hodgkins lymphoma daughter: non hodgkins lymphoma Hormonal History: menarche: 17 , misscarriage:2, breast fed: yes, age at first : 19, tubal at 25 menopause: 46 secondary to chemo BCP: none hormones: none Surgical history: 1. Total abdominal hysterectomy 2. Breast biopsy benign 3. Appendectomy 4. Abdominal hernias 5. Pleurodesis secondary to pleural fluid collecting in the lungs 6. Cholecystectomy 7. Tubal ligation 8. Right breast lumpectomy and sentinel node biopsy Medical History: none Social History: Nicotine: Negative Alcohol: Occasional Drugs: Negative - Constitutional Constitutional: Denies chills, Denies fever - EENT Eyes: bilateral blurred vision, denies pain Ears: deny: decreased hearing, tinnitus Ears, nose, mouth and throat: Denies headache, Denies sore throat - Breasts Breasts: bilateral: as per HPI - Cardiovascular Cardiovascular: Reports shortness of breath, Denies chest pain - Respiratory Respiratory: Denies cough - Gastrointestinal Gastrointestinal: Denies abdominal pain, Denies diarrhea, Denies nausea, Denies vomiting - Genitourinary (Female) Genitourinary: Denies dysuria, Denies hematuria - Menstruation Menstruation: Reports post hysterectomy - Musculoskeletal Comment: lymphedema left leg - Integumentary Integumentary: Denies pruritus, Denies rash - Neurological Neurological: Denies numbness, Denies weakness - Psychiatric Psychiatric: Denies anxiety, Denies depression - Endocrine Endocrine: Reports fatigue, Reports weight change - Hematologic/Lymphatic Comment: history of non hodgkins lymphoma - Allergic/Immunologic Allergic/Immunologic: Reports as per HPI Objective - Vital Signs Vital signs: Vital Signs Temp 98.2 F 08/08/20 13:26 Pulse 86 08/08/20 13:26 Resp 18 08/08/20 13:26 BP 139/81 08/08/20 13:26 Pulse Ox 99 08/08/20 13:26 Intake & Output 08/07/20 08/08/20 08/08/20 18:59 06:59 18:59 Weight 55.338 kg - Exam BMI 22.3 - Constitutional General appearance: Present: cooperative - EENT Eyes: Present: EOMI ENT: Present: hearing grossly normal - Neck Neck: Present: normal ROM - Respiratory Respiratory: bilateral: CTA - Cardiovascular Rhythm: regular Heart sounds: normal: S1, S2 - Gastrointestinal General gastrointestinal: Present: soft - Integumentary Integumentary: Present: normal turgor - Musculoskeletal Musculoskeletal: Present: gait normal - Psychiatric Psychiatric: Present: A&O x's 3, appropriate affect, intact judgment & insight - Additional findings Additional findings: Breast Exam: Bra: 34B inspection: grade 2 ptosis bilateral palpation: right breast: well healed scar from prior surgery, radiation changes, no dominant masses or nodules of concern Right axilla: No adenopathy of concern Left breast: Multi-positional exam no dominant masses or nodules of concern Left axilla: No adenopathy of concern Assessment and Plan Assessment: Impression: 1. Patient status post history of non-Hodgkin's lymphoma 2. Fibrocystic breast changes 3. Personal history of squamous cell carcinoma resulting in total abdominal hysterectomy 4. Right breast invasive ductal carcinoma status post lumpectomy and sentinel node biopsy and radiation therapy no evidence of recurrent disease Plan: 1. Repeat right breast mammogram November 2020 2. Follow-up appointment at that time . Patient to follow up sooner if any questions or concerns Cc: Dr. Galo, Dr. Parson Encounter 20 minutes, time spent in physical examination, and counseling.
== END ==
LOC: WWCWWP 13:19
PROVIDERS: ATTEND Surgery
DX: C50.911 Malignant neoplasm of unspecified site of right female breast (principal); Z85.41 Personal history of malignant neoplasm of cervix uteri; Z85.72 Personal history of non-Hodgkin lymphomas; Z90.710 Acquired absence of both cervix and uterus; Z98.890 Other specified postprocedural states; Z92.3 Personal history of irradiation; Z88.5 Allergy status to narcotic agent; Z88.6 Allergy status to analgesic agent; Z88.8 Allergy status to other drugs, medicaments and biological substances; Z87.891 Personal history of nicotine dependence

== ENCOUNTER → 2021-01-23 | Outpatient (CLI) | payer MEDICARE, BC ==
--- NOTE | 2021-01-26 08:58 | MM ---
Reason for exam: additional evaluation requested from prior study. Last mammogram was performed 1 year and 1 month ago. History: Patient is postmenopausal, has history of breast cancer at age 69, has history of endometrial cancer at age 65, and has history of other cancer at age 46. Benign MG pre op needle loc RT of the right breast, March 18, 2020. Lumpectomy of the right breast, March 18, 2020. Malignant US biopsy breast VAD RT of the right breast, January 07, 2020. Benign excisional biopsy of both breasts, 1970. Took hormonal contraceptives for 1 year beginning at age 20. Physical Findings: Nurse did not find any significant physical abnormalities on exam. MG 3D Diag Mammo W/Cad TIFFANI Bilateral CC and MLO view(s) were taken. Prior study comparison: January 07, 2020, right breast MG diagnostic mammo RT wo CAD. December 12, 2019, bilateral MG 3d diag mammo w/cad TIFFANI. February 13, 2018, bilateral MG 3d screening mammo w/cad. The breast tissue is heterogeneously dense. This may lower the sensitivity of mammography. Post operative change right breast. These results were verbally communicated with the patient and result sheet given to the patient on 01/23/21. ASSESSMENT: Benign, BI-RAD 2 RECOMMENDATION: Follow-up diagnostic mammogram of both breasts in 1 year. Manage patient on a clinical basis. Consider yearly screening MRI if hisoty of prior mantle cell cancer.
== END | disposition home or self-care (01) ==
LOC: RADMAMWWP 14:51
PROVIDERS: ATTEND Surgery
DX: R92.2 Inconclusive mammogram (principal); Z78.0 Asymptomatic menopausal state; Z80.3 Family history of malignant neoplasm of breast
CPT/HCPCS: 77066; G0279; 77062

== ENCOUNTER 2021-03-24 12:44 | Inpatient (IN) | payer MEDICARE, BC ==
[2021-03-24] MEDS ORDERED: ASPIRIN 81 MG PO STA (14:43)
[2021-03-24 15:30] LABS: Basophils % (A) 1 %; Eosinophils % (A) 1 %; HCT 42.4 % (34.0-46.0); HGB 14.1 gm/dL (11.4-16.0); Lymphocytes # (A) 0.7 k/uL (1.0-4.8); Lymphocytes % (A) 16 %; MCH 30.1 pg (25.0-35.0); MCHC 33.3 g/dL (31.0-37.0); MCV 90.5 fL (80.0-100.0); Mean Platelet Volume 7.8; Monocytes # (A) 0.3 k/uL (0-1.0); Monocytes % (A) 7 %; Neutrophils % (A) 73 %; Platelet Count 200 k/uL (150-450); RBC 4.69 m/uL (3.80-5.40); RDW 13.5 % (11.5-15.5); WBC 4.1 k/uL (3.8-10.6)
[2021-03-24 15:37] LABS: Albumin 3.7 g/dL (3.5-5.0); Calcium 9.3 mg/dL (8.4-10.2); Magnesium 2.1 mg/dL (1.6-2.3); Total Bilirubin 1.2 mg/dL (0.2-1.3); Total Protein 5.9 g/dL (6.3-8.2)
[2021-03-24 15:38] LABS: Potassium 4.8 mmol/L (3.5-5.1)
[2021-03-24 15:42] LABS: INR 0.9 (<1.2); Prothrombin Time 9.9 sec (9.0-12.0)
--- NOTE | 2021-03-24 15:59 | ED ---
Chest Pain HPI - General Source: patient, RN notes reviewed Mode of arrival: ambulatory Limitations: no limitations <Teddy Alejo - Last Filed: 03/24/21 15:57> <Kory Cardoza - Last Filed: 03/24/21 17:57> - General Chief Complaint: Chest Pain Stated Complaint: abnormal EKG, chest pressure Time Seen by Provider: 03/24/21 14:42 - History of Present Illness Initial Comments: 62-year-old female sent emergency from chief complaint chest pressure. Patient states it started today. Patient states that she follow-up with her PCP today with her symptoms. Their concern about possible PE secondary to recent receiving Isaac & Isaac with a history of DVT she is not anticoagulated. She states she just feels pressure in the center of her chest. Patient states she's had no prior cardiac disease. Patient has had multiple forms of carcinoma. Patient denies any fevers chills no cough or cold-like symptoms. (Teddy Alejo) - Related Data Home Medications Medication Instructions Recorded Confirmed SUMAtriptan succinate [Imitrex] 50 mg PO DAILY PRN 12/08/15 03/24/21 Omeprazole Magnesium [PriLOSEC OTC] 20 mg PO DAILY PRN 03/24/21 03/24/21 Allergies Allergy/AdvReac Type Severity Reaction Status Date / Time morphine Allergy Severe Nausea & Verified 03/24/21 15:40 Vomiting cholestyramine Allergy Unknown Rash/Hives Verified 03/24/21 15:40 meperidine HCl [From Demerol] Allergy Unknown Verified 03/24/21 15:40 pantoprazole Allergy Rash/Hives Verified 03/24/21 15:40 warfarin sodium Allergy Unknown Verified 03/24/21 15:40 [From Coumadin] Review of Systems ROS Other: All systems not noted in ROS Statement are negative. <Teddy Alejo - Last Filed: 03/24/21 15:57> ROS Other: All systems not noted in ROS Statement are negative. <Kory Cardoza - Last Filed: 03/24/21 17:57> ROS Statement: Those systems with pertinent positive or pertinent negative responses have been documented in the HPI. EKG Findings - EKG Comments: EKG Findings:: EKG performed at 13:02 normal sinus rhythm rate of 94 WV 144 QRS 82 QT/QTC [id number] <Dedoe,Teddy M - Last Filed: 03/24/21 15:57> Past Medical History Past Medical History: Cancer, Deep Vein Thrombosis (DVT), GERD/Reflux, Osteoarthritis (OA) Additional Past Medical History / Comment(s): left leg Lymphedema, migraines, heart "regurgitaion", non hodgkins lymphoma- tx chemo and radiation 25 yrs ago, squamous cell carcenoma, vertigo, rt breast cancer, hx pancreatitis, recent unexplained wt loss History of Any Multi-Drug Resistant Organisms: None Reported Past Surgical History: Appendectomy, Breast Surgery, Cholecystectomy, Hernia Repair, Hysterectomy, Orthopedic Surgery, Tubal Ligation Additional Past Surgical History / Comment(s): PORT-A-CATH -STILL IN PLACE. EXP LAPARATOMY (ABD TUMOR RELATED TO LYMPHOMA). BILATERAL BREAST biopsies. , hx chest tube lung surgery, brijesh breast lumpectomy age 23, left knee surgery Past Anesthesia/Blood Transfusion Reactions: Previous Problems w/ Anesthesia Additional Past Anesthesia/Blood Transfusion Reaction / Comment(s): woke up during general anesthesia for a surgery Past Psychological History: No Psychological Hx Reported Smoking Status: Never smoker Past Alcohol Use History: Rare Past Drug Use History: None Reported - Past Family History Mother Family Medical History: Unable to Obtain Additional Family Medical History / Comment(s): no family hx per pt <SapnaTeddy Mccormack - Last Filed: 03/24/21 15:57> General Exam Limitations: no limitations General appearance: alert, in no apparent distress Head exam: Present: atraumatic, normocephalic, normal inspection Eye exam: Present: normal appearance, PERRL, EOMI. Absent: scleral icterus, conjunctival injection, periorbital swelling ENT exam: Present: normal exam, normal oropharynx, mucous membranes moist Neck exam: Present: normal inspection, full ROM. Absent: tenderness, meningismus, lymphadenopathy Respiratory exam: Present: normal lung sounds bilaterally. Absent: respiratory distress, wheezes, rales, rhonchi, stridor Cardiovascular Exam: Present: regular rate, normal rhythm, normal heart sounds. Absent: systolic murmur, diastolic murmur, rubs, gallop, clicks GI/Abdominal exam: Present: soft, normal bowel sounds. Absent: distended, tenderness, guarding, rebound, rigid <Teddy Alejo Ksenia - Last Filed: 03/24/21 15:57> Course Vital Signs 03/24/21 12:51 Temperature 98.6 F Pulse Rate 96 Respiratory 19 Rate Blood Pressure 161/94 O2 Sat by Pulse 99 Oximetry Chest Pain MDM <Kory Cardoza - Last Filed: 03/24/21 17:57> - [facility] CT shows no evidence of a pulmonary embolism. I spoke with sound physician's agreed to admit the patient admitted the patient wrote admitting orders. (Kory Cardoza) Disposition <Teddy Alejo - Last Filed: 03/24/21 15:57> Time of Disposition: 17:57 <Kory Cardoza - Last Filed: 03/24/21 17:57> Clinical Impression: Chest pain Disposition: ADMITTED IP TO THIS HOSP Referrals: Kavya Sigala MD [Primary Care Provider] - 1-2 days
--- NOTE | 2021-03-24 16:03 | XR ---
EXAMINATION TYPE: XR chest 2V DATE OF EXAM: 03/24/2021 COMPARISON: CT 11/09/2019 HISTORY: 70 year-old female chest pain TECHNIQUE: PA and lateral views FINDINGS: Heart normal size. Aorta and pulmonary vasculature within normal limits. Stable left apical pleural-p arenchymal opacity compared to the patient's 11/09/2019 CT. Surgical clips project over the right [place] [address]. Left anterior chest wall injection port with subclavian access and tip at the mid to lower SVC. N o consolidation or pleural effusion seen. Some blunting of the left lateral costophrenic angle sugges ting some pleural parenchymal scarring. IMPRESSION: COPD with stable left apical opacity/pleural parenchymal scarring. No acute process seen.
[2021-03-24 16:14] LABS: Partial Thromboplastin Time 21.5 sec (22.0-30.0)
--- NOTE | 2021-03-24 17:13 | CT ---
EXAMINATION TYPE: CT chest angio for PE DATE OF EXAM: 03/24/2021 COMPARISON: No prior CT chest available for comparison. Limited comparison made to PET/CT dated 2019 HISTORY: Chest pressure. History of non-Hodgkin lymphoma. TECHNIQUE: CT scan of the chest performed with contrast for pulmonary embolism. CT DLP: 198.1 mGycm Automated exposure control for dose reduction was used. FINDINGS: There is optimal opacification of the pulmonary trunk average Hounsfield unit of 572. No filling defe cts are seen in the pulmonary arteries. Pulmonary trunk diameter is 2.1 cm. Atherosclerotic calcifica tions are scattered throughout the intrathoracic aorta which does not appear to be aneurysmal. There are medial left upper and left lower lobe patchy opacities which are sharply demarcated and are seen on the prior study. There is a nonspecific groundglass like opacity in the right lower lobe medially. There is minimal fa t atelectatic changes. No lung masses seen. No significant lung nodule is appreciated though there are some subpleural nodul es in the lung bases which are 1 to 2 mm. There is a calcified nodule in the right lower lobe. No pleural effusion or pneumothorax. No enlarged mediastinal or hilar lymph nodes are seen. No enlarged axillary lymph nodes are seen. Galileo cified nodules are seen in the right hilum. Heart is normal in size and there is no pericardial effusion. Tracheobronchial tree is patent. No acute fracture or dislocation is seen. There is heterogeneous attenuation of the midthoracic verte bral bodies most prominent at T9 and T10. There is mild to moderate degenerative changes throughout t he thoracic spine. No aggressive osseous lesion seen. A right central catheter is seen in the neck. The distal end curls and the tip projects rightward. Scattered calcifications are seen in the spine. Specific mild thickening of the left adrenal gland. S ubcentimeter low attenuating nodule in the right hepatic lobe, too small to visualize. Small gastroes ophageal hiatal hernia with surgical clips at the gastroesophageal junction. Lateral breast right gre ater than left calcifications and surgical clips. Left-sided portacatheter tip is difficult to follow through its entire course due to contrast opacifi cation of the venous structures. IMPRESSION: 1. NO EVIDENCE FOR PULMONARY ARTERIAL EMBOLISM. 2. TIP OF THE RIGHT CENTRAL VASCULAR CATHETER CURLS AND PROJECTS TO THE RIGHT, THIS IS CONCERNING FOR MALPOSITIONING. CORRELATION WITH DEDICATED CHEST RADIOGRAPH RECOMMENDED. 3. NONSPECIFIC GROUNDGLASS LIKE OPACITIES IN THE RIGHT LOWER LOBE WITH SCATTERED MINIMAL SUBPLEURAL N ODULES MAY BE REFLECTIVE OF ATELECTASIS, INFECTION OR INFLAMMATION. 4. WELL DEMARCATED MEDIAL LEFT UPPER AND LOWER LOBE OPACITIES WITH NO SIGNIFICANT CHANGE SINCE PRIOR PET/CT MOST LIKELY REFLECTIVE OF PRIOR TREATMENT SUCH RADIATION. CORRELATION WITH HISTORY IS RECOM MENDED. 5. HETEROGENEOUS ATTENUATION TO MIDTHORACIC SPINE VERTEBRAL BODIES MAY ALSO BE RELATED TO PRIOR TREAT MENT. CORRELATION WITH HISTORY IS RECOMMENDED.
[2021-03-24] MEDS ORDERED: NITROGLYCERIN SL TABS 0.4 MG TAB SUBLINGUAL PRN (17:57)
[2021-03-24] MEDS: NITROGLYCERIN OINT 1 INCH/GM PACKET TOPICAL SCH (19:02)
[2021-03-24] MEDS ORDERED: MAG HYDROX/AL HYDROX/SIMETH 30 ML CUP PO PRN (22:59)
--- NOTE | 2021-03-25 00:02 | P.HPIM ---
History of Present Illness H&P Date: 03/24/21 Chief Complaint: Chest pain 70-year-old female with history of pancreatitis, non-Hodgkin lymphoma, breast cancer Patient comes in with sudden onset central chest pain described as dull achy pain 6 out of 10 in severity radiates straight to the back denies any associated symptoms of profuse sweating and nausea vomiting or shortness of breath She does admit to history of blood clots in the past, she is not on chronic blood thinners She had cut her Isaac & Isaac vaccine on Tuesday after which she felt some fatigue and body aches She otherwise denies any recent hospitalization or traveling. She denies any cardiac history she had some stress test done a few years ago and was negative She feels strong and able to do activities of daily living and she remains act sophia with no limitations due to chest pain or trouble breathing at baseline In the ED initial workup with CTA of the lungs showed no evidence of acute PE Patient admitted for cardiac workup to rule out ACS Review of Systems Pertinent positives as noted in HPI. All other systems were reviewed and are negative Past Medical History Past Medical History: Cancer, Deep Vein Thrombosis (DVT), GERD/Reflux, Osteoarthritis (OA) Additional Past Medical History / Comment(s): left leg Lymphedema, migraines, heart "regurgitaion", non hodgkins lymphoma- tx chemo and radiation 25 yrs ago, squamous cell carcenoma, vertigo, rt breast cancer, hx pancreatitis, recent unexplained wt loss History of Any Multi-Drug Resistant Organisms: None Reported Past Surgical History: Appendectomy, Breast Surgery, Cholecystectomy, Hernia Repair, Hysterectomy, Orthopedic Surgery, Tubal Ligation Additional Past Surgical History / Comment(s): PORT-A-CATH -STILL IN PLACE. EXP LAPARATOMY (ABD TUMOR RELATED TO LYMPHOMA). BILATERAL BREAST biopsies. , hx chest tube lung surgery, brijesh breast lumpectomy age 23, left knee surgery Past Anesthesia/Blood Transfusion Reactions: Previous Problems w/ Anesthesia Additional Past Anesthesia/Blood Transfusion Reaction / Comment(s): woke up during general anesthesia for a surgery Past Psychological History: No Psychological Hx Reported Smoking Status: Never smoker Past Alcohol Use History: Rare Past Drug Use History: None Reported - Past Family History Mother Family Medical History: Unable to Obtain Additional Family Medical History / Comment(s): no family hx per pt Medications and Allergies Home Medications Medication Instructions Recorded Confirmed Type SUMAtriptan succinate [Imitrex] 50 mg PO DAILY PRN 12/08/15 03/24/21 History Omeprazole Magnesium [PriLOSEC OTC] 20 mg PO DAILY PRN 03/24/21 03/24/21 History Allergies Allergy/AdvReac Type Severity Reaction Status Date / Time morphine Allergy Severe Nausea & Verified 03/24/21 15:40 Vomiting cholestyramine Allergy Unknown Rash/Hives Verified 03/24/21 15:40 meperidine HCl [From Demerol] Allergy Unknown Verified 03/24/21 15:40 pantoprazole Allergy Rash/Hives Verified 03/24/21 15:40 warfarin sodium Allergy Unknown Verified 03/24/21 15:40 [From Coumadin] Physical Exam Vitals: Vital Signs Temp Pulse Resp BP Pulse Ox 03/24/21 19:04 74 18 150/80 98 03/24/21 17:58 73 18 154/91 99 03/24/21 12:51 98.6 F 96 19 161/94 99 Intake and Output 03/24/21 03/24/21 03/25/21 14:59 22:59 06:59 Other: Weight 53.07 kg Constitutional: No acute distress, conversant, pleasant Eyes: Anicteric sclerae, moist conjunctiva, Pupils equal round reactive to light ENMT: NC/AT Oropharynx clear, no erythema, or exudates Neck: Supple, no masses, or JVD No carotid bruits No thyromegaly Lungs: Clear to auscultation Clear to percussion Normal respiratory effort, no accessory muscle use Cardiovascular: Heart regular in rate and rhythm, No murmurs, gallops, or rubs In the lateral left leg nonpitting edema Abdominal: Soft Nontender, no guarding, rebound or rigidity Abdomen moving with respiration Normoactive bowel sounds No hepatomegaly, No splenomegaly No palpable mass No abdominal wall hernia noted Skin: Normal temperature, tone, texture, turgor No induration No subcutaneous nodules No rash, lesions No ulcers Extremities: No digital cyanosis No clubbing Pedal pulses intact and symmetrical Radial pulses intact and symmetrical No calf tenderness Psychiatric: Alert and oriented to person, place and time Appropriate affect fair judgement Neuro Muscles Strength 5/5 in all 4 extremities Sensation to light touch grossly present throughout Cranial nerves II-XII grossly intact No focal sensory deficits Lymphatics: no palpable cervical or supraclavicular , or inguinal lymph nodes Results CBC & Chem 7: 03/24/21 15:03 03/24/21 15:03 Labs: Abnormal Lab Results - Last 24 Hours (Table) 03/24/21 03/24/21 03/24/21 Range/Units 15:03 15:03 15:03 Lymphocytes # 0.7 L (1.0-4.8) k/uL APTT 21.5 L (22.0-30.0) sec D-Dimer 0.64 H (<0.60) mg/L FEU Sodium 135 L (137-145) mmol/L Total Protein 5.9 L (6.3-8.2) g/dL Assessment and Plan Assessment: Atypical chest pain rule out ACS Troponins negative 2 CTA of the lungs negative Trend troponins Cardiac evaluation Monitor vital signs Pain control Aspirin Supplemental oxygen as needed, to keep oxygen sats above 92% Follow-up labs Chronic GERD Famotidine twice a day Maalox when necessary History of non-Hodgkin lymphoma and breast cancer in remission Full code DVT prophylaxis Lovenox daily Anticipated length of stay less than 2 midnights
[2021-03-25] MEDS: NITROGLYCERIN OINT 1 INCH/GM PACKET TOPICAL SCH ×2 (00:03→06:49)
[2021-03-25] MEDS: SUMAtriptan succinate 50 MG TAB PO PRN (01:41)
[2021-03-25] MEDS: ENOXAPARIN 40 MG/0.4 ML SYRINGE SQ SCH (08:42)
[2021-03-25] MEDS ORDERED: ASPIRIN 325 MG TAB PO SCH (09:00)
[2021-03-25 09:16] LABS: LDL Cholesterol,Calculated 128.6 mg/dL (0.0-131.0); VLDL Calculation 17.46 mg/dL (5.00-40.00)
[2021-03-25] MEDS ORDERED: CAFFEINE CITRATE 60 MG/3 ML VIAL IV PRN (10:17)
[2021-03-25] MEDS ORDERED: REGADENOSON 0.4 MG/5 ML SYRINGE IV PRN (10:17)
[2021-03-25] MEDS ORDERED: AMINOPHYLLINE 500 MG/20 ML VIAL IV PRN (10:17)
--- NOTE | 2021-03-25 11:16 | P.CRDCN ---
History of Present Illness Consult date: 03/25/21 History of present illness: HISTORY OF PRESENT ILLNESS: This is a 70-year-old female with a past medical history significant for DVT, breast cancer and lymphoma with previous chemotherapy. Patient does not follow with a mental health therapist. She does report that she saw Dr. Kumar many years ago. We have been asked to see the patient in consultation for chest pain. Patient examined at the bedside. Patient reports that she got her Covid vaccine on S at and was not feeling very well for the next couple days. She states yesterday evening around 10 PM she began having chest pressure. She denies any chest pain. She states the pressure goes into her shoulder blades. She does report it is worse with movement. She denies it being worse with 8 deep breath or palpation. She states it is not better or worse with eating. She states the pain has been constant since yesterday night. EKG reveals sinus mechanism with nonspecific ST-wave changes Chest xray COPD with stable left apical obesity/pleural parenchymal scarring. No acute process seen. Chest CT: Negative for pulmonary embolism Laboratory data: WBC 4.1. Hemoglobin 14.1. Platelet count 200. Sodium 135. Potassium 4.8. BUN 13. Creatinine 0.79. Magnesium 2.1. Troponin negative 3. Current home cardiac medications include none REVIEW OF SYSTEMS: At the time of my exam: CONSTITUTIONAL: Denies fever or chills. HEENT: Denies blurred vision, vision changes, or eye pain. Denies hemoptysis CARDIOVASCULAR: Denies chest pain. Denies orthopnea. Denies PND. Denies palpitations RESPIRATORY: Denies shortness of breath. GASTROINTESTINAL: Denies abdominal pain. Denies nausea or vomiting. HEMATOLOGIC: Denies bleeding disorders. GENITOURINARY: Denies any blood in urine. SKIN: Denies pruitis. Denies rash. PHYSICAL EXAM: VITAL SIGNS: Reviewed. GENERAL: Well-developed in no acute distress. HEENT: Head is normocephalic. Pupils are equal, round. Sclerae anicteric. Mucous membranes of the mouth are moist. Neck supple. No JVD or thyromegaly LUNGS: Respirations even and unlabored. Lungs essentially clear to auscultation bilaterally. HEART: Regular rate and rhythm. S1 and S2 heard. ABDOMEN: Soft. Nondistended. Nontender. EXTREMITIES: Normal range of motion. No clubbing or cyanosis. Peripheral pulses intact. No lower extremity edema NEUROLOGIC: Awake and alert. Oriented x 3. ASSESSMENT: Chest pressure, troponin negative x 3 History of DVT History of breast cancer and lymphoma with previous chemotherapy PLAN: An acute coronary event has been ruled out Decrease aspirin to 81 mg daily Obtain 2-D echo to assess cardiac structure and function Patient undergo Lexiscan stress test today to assess for ischemia Further recommendations pending patient's course Nurse practitioner note has been reviewed by physician. Signing provider agrees with the documented findings, assessment, and plan of care. Past Medical History Past Medical History: Cancer, Deep Vein Thrombosis (DVT), GERD/Reflux, Osteoarth ritis (OA) Additional Past Medical History / Comment(s): left leg Lymphedema, migraines, heart "regurgitaion", non hodgkins lymphoma- tx chemo and radiation 25 yrs ago, squamous cell carcenoma, vertigo, rt breast cancer, hx pancreatitis, recent unexplained wt loss History of Any Multi-Drug Resistant Organisms: None Reported Past Surgical History: Appendectomy, Breast Surgery, Cholecystectomy, Hernia Repair, Hysterectomy, Orthopedic Surgery, Tubal Ligation Additional Past Surgical History / Comment(s): PORT-A-CATH -STILL IN PLACE. EXP LAPARATOMY (ABD TUMOR RELATED TO LYMPHOMA). BILATERAL BREAST biopsies. , hx chest tube lung surgery, brijesh breast lumpectomy age 23, left knee surgery Past Anesthesia/Blood Transfusion Reactions: Previous Problems w/ Anesthesia Additional Past Anesthesia/Blood Transfusion Reaction / Comment(s): woke up during general anesthesia for a surgery Past Psychological History: No Psychological Hx Reported Smoking Status: Never smoker Past Alcohol Use History: Rare Past Drug Use History: None Reported - Past Family History Mother Family Medical History: Unable to Obtain Additional Family Medical History / Comment(s): no family hx per pt Medications and Allergies Home Medications Medication Instructions Recorded Confirmed Type SUMAtriptan succinate [Imitrex] 50 mg PO DAILY PRN 12/08/15 03/24/21 History Omeprazole Magnesium [PriLOSEC OTC] 20 mg PO DAILY PRN 03/24/21 03/24/21 History Allergies Allergy/AdvReac Type Severity Reaction Status Date / Time morphine Allergy Severe Nausea & Verified 03/24/21 15:40 Vomiting cholestyramine Allergy Unknown Rash/Hives Verified 03/24/21 15:40 meperidine HCl [From Demerol] Allergy Unknown Verified 03/24/21 15:40 pantoprazole Allergy Rash/Hives Verified 03/24/21 15:40 warfarin sodium Allergy Unknown Verified 03/24/21 15:40 [From Coumadin] Physical Exam Vitals: Vital Signs Temp Pulse Resp BP Pulse Ox 03/25/21 08:59 100 03/25/21 08:58 100 03/25/21 08:40 81 16 130/79 98 03/25/21 05:50 98.2 F 70 19 138/86 99 03/25/21 02:00 86 19 133/89 97 03/24/21 20:00 19 03/24/21 19:04 74 18 150/80 98 03/24/21 17:58 73 18 154/91 99 03/24/21 12:51 98.6 F 96 19 161/94 99 Results 03/24/21 15:03 03/24/21 15:03 Cardiac Enzymes 03/24/21 03/24/21 03/24/21 Range/Units 15:03 15:03 19:47 AST 31 (14-36) U/L Troponin I <0.012 0.015 (0.000-0.034) ng/mL 03/24/21 Range/Units 22:12 AST (14-36) U/L Troponin I <0.012 (0.000-0.034) ng/mL Coagulation 03/24/21 Range/Units 15:03 PT 9.9 (9.0-12.0) sec APTT 21.5 L (22.0-30.0) sec Lipids 03/24/21 Range/Units 15:03 Triglycerides 87.30 (0.00-149.00) mg/dL Cholesterol 207.00 H (0.00-200.00) mg/dL HDL Cholesterol 60.90 H (40.00-60.00) mg/dL Cholesterol/HDL Ratio 3.40 Ratio CBC 03/24/21 Range/Units 15:03 WBC 4.1 (3.8-10.6) k/uL RBC 4.69 (3.80-5.40) m/uL Hgb 14.1 (11.4-16.0) gm/dL Hct 42.4 (34.0-46.0) % Plt Count 200 (150-450) k/uL Comprehensive Metabolic Panel 03/24/21 Range/Units 15:03 Sodium 135 L (137-145) mmol/L Potassium 4.8 (3.5-5.1) mmol/L Chloride 104 (98-107) mmol/L Carbon Dioxide 26 (22-30) mmol/L BUN 13 (7-17) mg/dL Creatinine 0.79 (0.52-1.04) mg/dL Glucose 91 (74-99) mg/dL Calcium 9.3 (8.4-10.2) mg/dL AST 31 (14-36) U/L ALT 14 (4-34) U/L Alkaline Phosphatase 74 (38-126) U/L Total Protein 5.9 L (6.3-8.2) g/dL Albumin 3.7 (3.5-5.0) g/dL Current Medications Generic Name Dose Route Start Last Admin Trade Name Freq PRN Reason Stop Dose Admin Al Hydroxide/Mg Hydroxide 30 ml 03/24/21 22:59 Mag Hydrox/Al Hydrox/Simeth 30 Ml Cup PO Q4HR PRN GI Upset Aminophylline 100 mg 03/25/21 10:17 Aminophylline 500 Mg/20 Ml Vial IV 03/25/21 14:17 ONCE PRN Patient Response Aspirin 81 mg 03/26/21 09:00 Aspirin 81 Mg PO DAILY GAURAV Caffeine Citrate 60 mg 03/25/21 10:17 Caffeine Citrate 60 Mg/3 Ml Vial IV 03/25/21 14:17 ONCE PRN Patient Response Enoxaparin Sodium 40 mg 03/25/21 09:00 03/25/21 08:42 Enoxaparin 40 Mg/0.4 Ml Syringe SQ 40 mg DAILY GAURAV Administration Famotidine 20 mg 03/24/21 23:15 03/25/21 00:00 Famotidine 20 Mg Tab PO 20 mg BID GAURAV Administration Sodium Chloride 1,000 mls @ 75 mls/hr 03/24/21 23:15 03/25/21 00:00 Saline 0.9% IV 75 mls/hr .[id number] GAURAV Administration Nitroglycerin 0.4 mg 03/24/21 17:57 Nitroglycerin Sl Tabs 0.4 Mg Tab SUBLINGUAL Q5M PRN Chest Pain Nitroglycerin 1 inch 03/24/21 18:00 03/25/21 06:49 Nitroglycerin Oint 1 Inch/Gm Packet TOPICAL Not Given Q6HR GAURAV Regadenoson 0.4 mg 03/25/21 10:17 Regadenoson 0.4 Mg/5 Ml Syringe IV 03/25/21 14:17 ONCE PRN Per Protocol Sumatriptan Succinate 50 mg 03/25/21 00:08 03/25/21 01:41 Sumatriptan Succinate 50 Mg Tab PO 50 mg DAILY PRN Administration migraines 03/24/21 15:03 03/24/21 15:03
--- NOTE | 2021-03-25 11:33 | P.PN ---
<Zaid Mo - Last Filed: 03/25/21 11:15> Subjective Progress Note Date: 03/25/21 Hospital course: Patient is a very pleasant 70-year-old female with a past medical history of Non-Hodgkin's lymphoma status post chemotherapy, breast cancer status post lumpectomy, squamous cell carcinoma, DVT, lymphoma, and GERD. She presented to the emergency department on 03/24/21 with a chief complaint of chest pain. Patient reports while at work yesterday afternoon she began feeling pressure to her midsternal chest. Patient states this pain is a constant pressure-like sensation that radiates directly into her back. Patient states pain is worst with exertion and improves with rest but does not go away. Patient reports that she had her Isaac & Isaac vaccine for Covid 19 virus on 03/21/21 and was con cerned so she came to the hospital for evaluation. Patient denies having any cardiac history. She was seen and fully evaluated in the emergency department. Chest x-ray revealed normal sinus rhythm at 94 bpm with no noted T-wave or ST abnormalities showing no signs of acute ischemia. Troponins were trended at less than 0.012, 0.015, and less than 0.012. Chest x-ray was negative for acute cardiopulmonary process showing COPD with stable left apical opacity/pleural parenchymal scarring. D-dimer was elevated at 0.64 and a CTA was completed, negative for pulmonary emboli. Patient was admitted under our services with consultation to cardiology. Physical exam: Vital signs reviewed and stable. General: Nontoxic, no distress and appears stated age. Derm: Skin warm and dry, normal coloration for ethnicity. Head: Atraumatic, normocephalic and symmetric. Eyes: EOMs intact, no lid lag, and anicteric sclera Mouth: no lip lesions, mucus membranes moist Cardiovascular: regular rate and rhythm with normal S1S2, no murmur, positive posterior tibial pulses bilaterally, and cap refill < 2 seconds. Lungs: Respirations even, regular, and unlabored on room air. Lungs CTA bilaterally, no rhonchi, no rales, no wheezing, and no accessory muscle usage. Abdominal: soft, nontender to palpation, no guarding, no appreciable organomegaly Ext: ROM intact. No gross muscle atrophy, no edema, no contractures Neuro: Speech clear, face symmetrical and CN II-XII grossly intact with no noted focal neuro deficits Psych: Alert and oriented to person, place, time, and situation. Appropriate and pleasant affect. Assessment and Plan of Care: Chest pain/pressure, rule out ACS -Cardiology following, plans to take patient for stress test -Telemetry monitoring -Cardiac diet -Continue daily Aspirin -Lipid profile Chronic GERD -Continue famotidine twice a day -Maalox when necessary History of non-Hodgkin's lymphoma, breast cancer, and squamous cell carcinoma in remission CODE STATUS: Full code DVT prophylaxis: Lovenox Discussed with: Patient and RN Anticipated discharge date: 1-2 days pending stress test results Anticipated discharge place: home A total of 40 minutes was spent on the care of this complex patient more than 50% of the time was spent in counseling and care coordination. Objective - Vital Signs Vital signs: Vital Signs Temp 98.2 F 03/25/21 05:50 Pulse 81 03/25/21 08:40 Resp 16 03/25/21 08:40 BP 130/79 03/25/21 08:40 Pulse Ox 100 03/25/21 08:59 Intake & Output 03/24/21 03/25/21 03/25/21 18:59 06:59 18:59 Weight 53.07 kg - Labs CBC & Chem 7: 03/24/21 15:03 03/24/21 15:03 Labs: Abnormal Lab Results - Last 24 Hours (Table) 03/24/21 03/24/21 03/24/21 Range/Units 15:03 15:03 15:03 Lymphocytes # 0.7 L (1.0-4.8) k/uL APTT 21.5 L (22.0-30.0) sec D-Dimer 0.64 H (<0.60) mg/L FEU Sodium 135 L (137-145) mmol/L Total Protein 5.9 L (6.3-8.2) g/dL Cholesterol (0.00-200.00) mg/dL HDL Cholesterol (40.00-60.00) mg/dL 03/24/21 Range/Units 15:03 Lymphocytes # (1.0-4.8) k/uL APTT (22.0-30.0) sec D-Dimer (<0.60) mg/L FEU Sodium (137-145) mmol/L Total Protein (6.3-8.2) g/dL Cholesterol 207.00 H (0.00-200.00) mg/dL HDL Cholesterol 60.90 H (40.00-60.00) mg/dL <Estelita Morris - Last Filed: 03/25/21 17:01> Subjective I reviewed the documentation as provided by the JEFF above, who is the original author of this note. I agree with the documented assessment and plan, with the following changes: None Objective - Vital Signs Vital signs: Vital Signs Temp 98.2 F 03/25/21 05:50 Pulse 110 H 03/25/21 15:42 Resp 18 03/25/21 15:42 BP 164/94 03/25/21 15:42 Pulse Ox 98 03/25/21 15:42 Intake & Output 03/24/21 03/25/21 03/25/21 18:59 06:59 18:59 Weight 53.07 kg 53.07 kg - Labs CBC & Chem 7: 03/24/21 15:03 03/24/21 15:03 Labs: Abnormal Lab Results - Last 24 Hours (Table) 03/24/21 Range/Units 15:03 Cholesterol 207.00 H (0.00-200.00) mg/dL HDL Cholesterol 60.90 H (40.00-60.00) mg/dL
[2021-03-25] MEDS: SODIUM CHLORIDE 0.9% 1,000 ML IV SCH ×2 (12:10)
[2021-03-25] MEDS: FAMOTIDINE 20 MG TAB PO SCH ×3 (13:56→19:58)
--- NOTE | 2021-03-25 15:20 | NM ---
EXAMINATION TYPE: NM stress lexiscan cardiolite DATE OF EXAM: 03/25/2021 COMPARISON: CTA chest from yesterday. HISTORY: History of tobacco use in the past with chest pain TECHNIQUE: After the intravenous administration of 9.5 mCi Tc 99m Sestamibi - Cardiolite resting SPE CT images acquired 45 minutes post injection. The patient received 0.4mg Lexiscan, 24.1 mCi Tc 99m Sestamibi - Stress images obtained [address] injection FINDINGS: Review of stress and rest SPECT images demonstrates overall poor radiotracer uptake on stress and res t images. Diminished radiotracer uptake on stress images versus rest images involving the apical sept al wall seen best on horizontal long axis views and which acute ischemia cannot be excluded reproduc es on short axis and vertical long axis images. Gated analysis shows normal wall motion with an estim ated left ventricular ejection fraction of 45 %. IMPRESSION: Cannot exclude acute ischemia anteroseptal wall near the apex. Need to further investiga te with direct catheter angiogram should be based on clinical and EKG correlation.
[2021-03-26] MEDS: SODIUM CHLORIDE 0.9% 1,000 ML IV SCH ×2 (03:16→17:22)
--- NOTE | 2021-03-26 08:27 | ECHOF ---
Referral Reason:LV function, chest pain MEASUREMENTS -------- HEIGHT: 160.0 cm WEIGHT: 53.1 kg BP: IVSd: 0.8 cm (0.6 - 1.1) LVIDd: 3.8 cm (3.9 - 5.3) LVPWd: 1.1 cm (0.6 - 1.1) IVSs: 1.2 cm LVIDs: 2.7 cm LVPWs: 1.5 cm LA Diam: 2.9 cm (2.7 - 3.8) LAESV Index (A-L): 25.60 ml/m Ao Diam: 3.0 cm (2.0 - 3.7) AV Cusp: 1.6 cm (1.5 - 2.6) LA Diam: 3.0 cm (2.7 - 3.8) MV EXCURSION: 19.089 mm (> 18.000) MV EF SLOPE: 128 mm/s (70 - 150) EPSS: 2.0 cm MV E Selvin: 0.47 m/s MV DecT: 190 ms MV A Selvin: 0.88 m/s MV E/A Ratio: 0.53 RAP: 5.00 mmHg RVSP: 12.51 mmHg FINDINGS -------- Sinus rhythm. This was a technically adequate study. LV size, wall thickness and systolic function are normal, with an EF greater than 55%. The left kassandra tricular size is normal. The right ventricle is normal in size. The left atrial size is normal. The right atrial size is normal. There is mild aortic valve sclerosis. There is no evidence of aortic regurgitation. Mild mitral regurgitation is present. Mild tricuspid regurgitation present. Right ventricular systolic pressure is normal at < 35 mmHg. There is no pulmonic regurgitation present. There is no pericardial effusion. CONCLUSIONS -------- 1. LV size, wall thickness and systolic function are normal, with an EF greater than 55%. 2. The left ventricular size is normal. 3. The right ventricle is normal in size. 4. The left atrial size is normal. 5. The right atrial size is normal. 6. There is mild aortic valve sclerosis. 7. Mild mitral regurgitation is present. 8. Mild tricuspid regurgitation present. 9. There is no pericardial effusion. SIGN BOARD ERECTOR: Margi Padilla RDCS
[2021-03-26] MEDS: FAMOTIDINE 20 MG TAB PO SCH ×2 (08:49→20:11)
[2021-03-26] MEDS: ENOXAPARIN 40 MG/0.4 ML SYRINGE SQ SCH ×2 (08:50→09:11)
[2021-03-26] MEDS ORDERED: ASPIRIN 325 MG TAB PO STA (09:02)
[2021-03-26] MEDS: ASPIRIN 81 MG PO SCH (09:13)
[2021-03-26] MEDS: SUMAtriptan succinate 50 MG TAB PO PRN (09:13)
[2021-03-26] MEDS ORDERED: NITROGLYCERIN SL TABS 0.4 MG TAB SUBLINGUAL PRN ×2 (09:15→11:35)
[2021-03-26] MEDS ORDERED: ALPRAZolam 0.25 MG TAB PO PRN (09:15)
[2021-03-26] MEDS ORDERED: ALPRAZolam 0.5 MG TAB PO PRN (09:15)
[2021-03-26] MEDS ORDERED: IV FLUID CONTINUATION 1,000 ML IV ONE (10:09)
[2021-03-26] MEDS ORDERED: LIDOCAINE 1% INJ 10MG/ML (20 ML MDV) ONE (10:09)
[2021-03-26] MEDS ORDERED: VERAPAMIL 2.5 MG/ML 2 ML AMP ONE (10:09)
[2021-03-26] MEDS ORDERED: fentaNYL (PF) 50 MCG/ML 2 ML AMP ONE (10:23)
[2021-03-26] MEDS ORDERED: fentaNYL (PF) 50 MCG/ML 2 ML AMP IV ONE (10:33)
[2021-03-26] MEDS ORDERED: MIDAZOLAM 2 MG/2 ML VIAL IV ONE (10:33)
[2021-03-26] MEDS ORDERED: LIDOCAINE 1% INJ 10MG/ML (20 ML MDV) SQ ONE (10:34)
[2021-03-26] MEDS ORDERED: VERAPAMIL SYRINGE (5 MG/10 ML) INTRAARTER ONE (10:36)
[2021-03-26] MEDS: HEPARIN SODIUM 1,000 UN/ML (10ML VL) IV ONE ×2 (10:46→11:13)
[2021-03-26] MEDS ORDERED: CLOPIDOGREL 75 MG TAB ONE (11:05)
[2021-03-26] MEDS ORDERED: CLOPIDOGREL 75 MG TAB PO ONE (11:11)
--- NOTE | 2021-03-26 11:19 | P.CARDCATH ---
Date of Procedure: 03/26/21 Preoperative Diagnosis: chest pain and positive stress test Postoperative Diagnosis: critical lesion involving the mid LAD. . Mild to moderate disease involving the the RCA Procedure(s) Performed: left heart catheterization without left ventriculography Description of Procedure: HISTORY: This is a 70-year-old female with history of metastatic breast cancer who was admitted to the hospital with chest discomfort. Her EKGs and cardiac enzymes were negative. Nuclear stress test was described as showing ischemia involving the anteroseptal area. Patient is advised to have a cardiac cath for definitive diagnosis CONSENT:I have discussed the risks, benefits and alternative therapies for the above-mentioned procedure and for both sedation/analgesia as well as necessary blood product administration, if indicated, as they pertain to this patient. The patient has indicated understanding and acceptance of the risks and procedures discussed. PROCEDURE: Patient was brought to the lab in a fasting state. Patient was given some IV sedation. The right wrist is infiltrated with lidocaine and right radial artery was entered using Seldinger technique. A 6-Swedish catheter was left in place and selective coronary arteriography was performed. Patient tolerated the procedure well. Patient was found to have a critical lesion in the mid LAD. She went on to have stent placement by Dr. Kumar . No immediate complications were noted . Conscious Sedation: Versed 1mg Fentanyl 25 g Duration 25minutes HEMODYNAMICS: The aortic pressure is about 150/70. Left ventricle end-diastolic pressure is about 10. No gradient across the aortic valve SELECTIVE CORONARY ARTERIOGRAPHY: LEFT MAIN: Normal length and patent THE LEFT ANTERIOR DESCENDING CORONARY ARTERY:. This is a moderate caliber vessel with about 70-75% eccentric lesion in the midportion. There is a good-sized diagonal branch and a small septal branch. Prior to this lesion. The rest of the vessel seemed to be free of any significant occlusive disease THE LEFT CIRCUMFLEX AND IS CORONARY ARTERY:. This is a moderate caliber vessel giving rise to small OM branch. Free of any significant occlusive disease THE RIGHT CORONARY ARTERY: Is a good caliber vessel with diffuse disease in the occiput and mid segment and ectatic area involving the distal segment. There is areas of about 30-40% stenosis in the proximal segment. No significant focal lesion LEFT VENTRICULOGRAPHY:. Not performed FINAL IMPRESSION: Critical lesion involving the mid LAD. Mild to moderate diffuse disease involving the proximal to mid RCA with ectatic areas in the distal portion of the RCA PLAN: And placement of the LAD being done by Dr. Kumar PROGNOSIS: Fair
[2021-03-26] MEDS ORDERED: IOPAMIDOL-370 100ML BTL INJ ONE ×2 (11:20→11:25)
[2021-03-26] MEDS ORDERED: RX INFO: IV CONTRAST WAS GIVEN 1 EACH MISC MISCELLANE PRN (11:35)
[2021-03-26] MEDS ORDERED: ZOLPIDEM 5 MG TAB PO PRN (11:35)
[2021-03-26] MEDS ORDERED: ATROPINE SULFATE 0.1 MG/ML 10ML SYRINGE IV PRN (11:35)
[2021-03-26] MEDS ORDERED: MAG HYDROX/AL HYDROX/SIMETH 30 ML CUP PO PRN (11:35)
[2021-03-26] MEDS ORDERED: SODIUM CHLORIDE 0.9% 1,000 ML in EMPTY BAG 1 BAG IV SCH (11:45)
--- NOTE | 2021-03-26 12:14 | P.STRESS ---
- Stress Test Note Stress Test Results/Findings: Exam Performed: NM stress lexiscan cardiolite Exam Date: 03/25/21 Reason for Exam: CP Height: 5 ft 3 in Weight: 53.07 kg Protocol: LEXISCAN CARDIOLITE Stage: NA Duration of Exercise: NA Resting Heart Rate: 73 Resting Blood Pressure: 140/87 Maximum Achieved Heart Rate: 121 Maximum Achieved Blood Pressure: 162/86 85% PMHR: 129 100% PMHR: 152 METS: NA Technologist Comment: Stress Test Results/Findings: This is a 70-year-old female with history of metastatic breast CA and hypertension who was admitted to the hospital with chest pain. Cardiac enzymes and EKGs were negative. Stress data: Baseline EKG showed sinus rhythm with normal WA interval and QRS duration. Blood pressure at rest is 140/87, pulse rate of 73. A standard dose of Lexiscan was infused EKGs taken during and after infusion did not reveal any significant changes from baseline. Final impression: #1. Negative Lexiscan stress test #2. Report on the nuclear images to be given by the radiologist
--- NOTE | 2021-03-26 13:10 | PTCA ---
PERCUTANEOUSTRANS CORORONARY ANGIOGRAPHY Mrs. Jurado is a 70-year-old female with no prior documented history of obstructive coronary artery disease who presented with symptoms of chest discomfort, but no evidence of myocardial infarction. She was evaluated by Dr. Potter and underwent myocardial perfusion imaging that revealed evidence of inducible ischemia. Subsequently she underwent cardiac catheterization that revealed significant obstructive disease involving the mid LAD. Based on those findings, recommendation was made regarding angioplasty and stenting. The procedure as well as risks and complications were discussed with the patient, who was in full understanding and agreement. PROCEDURE DESCRIPTION: A 6-Pakistani EBU 3.75 guiding catheter was introduced into the system. After cannulating the left main, a 0.014 balanced medium weight J-wire was advanced across the lesion, positioned distally. Then a 2.5 x 15 mm Xience Skypoint stent was advanced, deployed and post-dilated at 14 atmospheres. After the last inflation, after appropriate wait, the balloon and the guidewire were withdrawn back into the guiding catheter. Images were obtained and repeated. Those images revealed stable successful stenting. At that point the guiding catheter, the balloon and the guidewire were removed. The sheath was removed. Hemostasis was obtained with deployment of a TR band. There was no immediate complication. Patient was returned to her room in stable condition. Of note, the patient received 3000 units of additional intravenous heparin. Her ACT was followed and she received oral loading dose of clopidogrel. She had EKG changes with the inflation but no chest discomfort. RESULTS: Successful stenting of the mid LAD with reduction of stenosis from 80% to 0%. RECOMMENDATIONS: Patient will be continued on aspirin, Plavix and statin. The importance of dual antiplatelet treatment was discussed with the patient, who is in full understanding and agreement. She will continue on the dual antiplatelet treatment for at least 6 months. Duration of sedation was 15 minutes. MMODL / IJN: [id number] /
[2021-03-26 15:07] VITALS: BMI 20.7
--- NOTE | 2021-03-26 15:26 | P.PN ---
<Zaid Mo - Last Filed: 03/26/21 15:18> Subjective Progress Note Date: 03/26/21 Hospital course: Patient is a very pleasant 70-year-old female with a past medical history of Non-Hodgkin's lymphoma status post chemotherapy, breast cancer status post lumpectomy, squamous cell carcinoma, DVT, lymphoma, and GERD. She presented to the emergency department on 03/24/21 with a chief complaint of chest pain. Patient reports while at work yesterday afternoon she began feeling pressure to her midsternal chest. Patient states this pain is a constant pressure-like sensation that radiates directly into her back. Patient states pain is worst with exertion and improves with rest but does not go away. Patient reports that she had her Isaac & Isaac vaccine for Covid 19 virus on 03/21/21 and was con cerned so she came to the hospital for evaluation. Patient denies having any cardiac history. She was seen and fully evaluated in the emergency department. Chest x-ray revealed normal sinus rhythm at 94 bpm with no noted T-wave or ST abnormalities showing no signs of acute ischemia. Troponins were trended at less than 0.012, 0.015, and less than 0.012. Chest x-ray was negative for acute cardiopulmonary process showing COPD with stable left apical opacity/pleural parenchymal scarring. D-dimer was elevated at 0.64 and a CTA was completed, negative for pulmonary emboli. Patient was admitted under our services with consultation to cardiology. An echocardiogram was completed revealing an EF greater than 55% with no significant valvular abnormalities. She underwent a Lexiscan stress test which was abnormal and cardiology recommended patient undergo cardiac cath. Cardiac cath revealed critical lesion involving the mid LAD with mild to moderate diffuse disease involving the proximal to mid RCA with ectatic areas in the distal portion of the RCA. Patient underwent stenting of mid LAD by Dr. Kumar. Lipid profile resulting showing an elevated cholesterol of 207. Patient started on atorvastatin 40 mg daily. Physical exam: Patient seen and fully evaluated at the bedside this morning. She reports persistent constant pressure to mid anterior chest that has been unresolved and unchanged. Denies having any other complaints at this time including headache, lightheadedness, dizziness, palpitations, shortness of breath, dyspnea with exertion, abdominal pain, nausea, vomiting, or experiencing any numbness/tingling/weakness in her extremities. Vital signs reviewed and stable. General: Nontoxic, no distress and appears stated age. Derm: Skin warm and dry, normal coloration for ethnicity. Head: Atraumatic, normocephalic and symmetric. Eyes: EOMs intact, no lid lag, and anicteric sclera Mouth: no lip lesions, mucus membranes moist Cardiovascular: regular rate and rhythm with normal S1S2, no murmur, positive posterior tibial pulses bilaterally, and cap refill < 2 seconds. Lungs: Respirations even, regular, and unlabored on room air. Lungs CTA bilaterally, no rhonchi, no rales, no wheezing, and no accessory muscle usage. Abdominal: soft, nontender to palpation, no guarding, no appreciable organomegaly Ext: ROM intact. No gross muscle atrophy, no edema, no contractures Neuro: Speech clear, face symmetrical and CN II-XII grossly intact with no noted focal neuro deficits Psych: Alert and oriented to person, place, time, and situation. Appropriate and pleasant affect. Assessment and Plan of Care: Chest pain/pressure Critical lesion of mid LAD Mild to moderate diffuse coronary artery disease -Cardiology following -Stress test abnormal. -Echocardiogram showing EF greater than 55% with no significant abnormalities. -Patient underwent cardiac cath resulting in stenting of mid LAD. -Telemetry monitoring -Cardiac diet -Continue daily Aspirin -Lipid profile Chronic GERD -Continue famotidine twice a day -Maalox when necessary History of non-Hodgkin's lymphoma, breast cancer, and squamous cell carcinoma in remission CODE STATUS: Full code DVT prophylaxis: Lovenox Discussed with: Patient and RN Anticipated discharge date: Likely tomorrow Anticipated discharge place: home A total of 40 minutes was spent on the care of this complex patient more than 50% of the time was spent in counseling and care coordination. Objective - Vital Signs Vital signs: Vital Signs Temp 97.6 F 03/26/21 01:02 Pulse 85 03/26/21 02:40 Resp 18 03/26/21 02:40 BP 122/66 03/26/21 01:02 Pulse Ox 99 03/26/21 01:02 Intake & Output 03/25/21 03/26/21 03/26/21 18:59 06:59 18:59 Weight 53.07 kg Other: Voiding Method Toilet # Voids 2 - Labs CBC & Chem 7: 03/24/21 15:03 03/24/21 15:03 Labs: Abnormal Lab Results - Last 24 Hours (Table) 03/24/21 Range/Units 15:03 Cholesterol 207.00 H (0.00-200.00) mg/dL HDL Cholesterol 60.90 H (40.00-60.00) mg/dL <Brandon Salinas - Last Filed: 03/26/21 15:56> Subjective agree with note and plan Objective - Vital Signs Vital signs: Vital Signs Temp 98.0 F 03/26/21 11:50 Pulse 77 03/26/21 14:00 Resp 18 03/26/21 14:00 BP 119/73 03/26/21 13:35 Pulse Ox 100 03/26/21 13:35 Intake & Output 03/25/21 03/26/21 03/26/21 18:59 06:59 18:59 Intake Total 316 Balance 316 Weight 53.07 kg 53.07 kg Intake: IV 80 Oral 236 Other: Voiding Method Toilet Toilet # Voids 2 2 - Labs CBC & Chem 7: 03/24/21 15:03 03/24/21 15:03
[2021-03-27] MEDS: SODIUM CHLORIDE 0.9% 1,000 ML IV SCH (05:57)
[2021-03-27] MEDS ORDERED: HEPARIN SODIUM,PORCINE 10,000 UNIT in SODIUM CHLORIDE 0.9% 1,000 ML IRRIGATION PRN (07:00)
[2021-03-27] MEDS ORDERED: HEPARIN SODIUM,PORCINE 2,500 UNIT in SODIUM CHLORIDE 0.9% 250 ML IRRIGATION PRN (07:00)
[2021-03-27] MEDS: FAMOTIDINE 20 MG TAB PO SCH (07:12)
[2021-03-27] MEDS: ASPIRIN 81 MG PO SCH (07:12)
[2021-03-27 08:06] VITALS: BP 122/73; PULSE 86; RESP 16; TEMP 97.8
[2021-03-27 08:19] LABS: African American GFR (CKD) 79 (>60 ml/min/1.73 sqM); Anion Gap 0 mmol/L; Blood Urea Nitrogen 14 mg/dL (7-17); Calcium 9.1 mg/dL (8.4-10.2); Carbon Dioxide 28 mmol/L (22-30); Chloride 107 mmol/L (98-107); Glucose 108 mg/dL (74-99); Non-African American GFR(CKD) 69 (>60 ml/min/1.73 sqM); Potassium 4.5 mmol/L (3.5-5.1); Sodium 135 mmol/L (137-145)
[2021-03-27] MEDS ORDERED: ATORVASTATIN 40 MG TAB PO SCH (09:00)
[2021-03-27] MEDS ORDERED: CLOPIDOGREL 75 MG TAB PO SCH (09:00)
--- NOTE | 2021-03-27 10:37 | P.PN ---
Subjective Progress Note Date: 03/27/21 HISTORY OF PRESENT ILLNESS: This is a 70-year-old female with a past medical history significant for DVT, breast cancer and lymphoma with previous chemotherapy. 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 She does report that she saw Dr. Kumar many years ago. We have been asked to see the patient in consultation for chest pain. Patient examined at the bedside. Patient reports that she got her Covid vaccine on Tuesday and was not feeling very well for the next couple days. She states yesterday evening around 10 PM she began having chest pressure. She denies any chest pain. She states the pressure goes into her shoulder blades. She does report it is worse with movement. She denies it being worse with 8 deep breath or palpation. She states it is not better or worse with eating. She states the pain has been constant since yesterday night. EKG reveals sinus mechanism with nonspecific ST-wave changes Chest xray COPD with stable left apical obesity/pleural parenchymal scarring. No acute process seen. Chest CT: Negative for pulmonary embolism Laboratory data: WBC 4.1. Hemoglobin 14.1. Platelet count 200. Sodium 135. Potassium 4.8. BUN 13. Creatinine 0.79. Magnesium 2.1. Troponin negative 3. Current home cardiac medications include none 03/27/2021 Patient examined this morning at the bedside. She is s/p cardiac cath with PCI to the LAD. patient denies chest pain or pressure. She denies shortness of breath. Vital signs are stable. PHYSICAL EXAM: VITAL SIGNS: Reviewed. GENERAL: Well-developed in no acute distress. HEENT: Head is normocephalic. Pupils are equal, round. Sclerae anicteric. Mucous membranes of the mouth are moist. Neck supple. No JVD or thyromegaly LUNGS: Respirations even and unlabored. Lungs essentially clear to auscultation bilaterally. HEART: Regular rate and rhythm. S1 and S2 heard. ABDOMEN: Soft. Nondistended. Nontender. EXTREMITIES: Normal range of motion. No clubbing or cyanosis. Peripheral pulses intact. No lower extremity edema NEUROLOGIC: Awake and alert. Oriented x 3. ASSESSMENT: Chest pressure, troponin negative x 3, status post cardiac catheterization with PCI to the LAD History of DVT History of breast cancer and lymphoma with previous chemotherapy PLAN: Continue current cardiac medications Patient is stable for discharge home today from a cardiac standpoint. She is to follow up on an outpatient basis. Nurse practitioner note has been reviewed by physician. Signing provider agrees with the documented findings, assessment, and plan of care. Objective - Vital Signs Vital signs: Vital Signs Temp 97.8 F 03/27/21 08:00 Pulse 86 03/27/21 08:00 Resp 16 03/27/21 08:00 BP 122/73 03/27/21 08:00 Pulse Ox 99 03/27/21 08:00 Intake & Output 03/26/21 03/27/21 03/27/21 18:59 06:59 18:59 Intake Total 552 Balance 552 Weight 53.07 kg Intake: IV 80 Oral 472 Other: Voiding Method Toilet Toilet # Voids 2 2 - Labs CBC & Chem 7: 03/24/21 15:03 03/27/21 07:50 Labs: Abnormal Lab Results - Last 24 Hours (Table) 03/27/21 Range/Units 07:50 Sodium 135 L (137-145) mmol/L Glucose 108 H (74-99) mg/dL
[2021-03-27 10:38] LABS: HCT 41.2 % (37.2-46.3); HGB 13.2 g/dL (12.0-15.0); MCH 28.6 pg (27.0-32.0); MCV 89.2 fL (80.0-97.0); Mean Platelet Volume 10.2 fL (9.5-12.2); Platelet Count 193 X 10*3/uL (140-440); RBC 4.62 X 10*6/uL (4.10-5.20); RDW 13.2 % (11.5-14.5); WBC 5.03 X 10*3/uL (4.50-10.00)
--- NOTE | 2021-03-27 11:40 | P.DS ---
<Zaid Mo - Last Filed: 03/27/21 11:21> Providers Expected date of discharge: 03/27/21 Hospital Course: Discharge Diagnosis: Chest pain/pressure, troponins negative x3, Cardiac cath revealed critical lesion of mid LAD which led to successful PCI with stent placement of mid LAD Mild to moderate diffuse coronary artery disease Chronic GERD History of non-Hodgkin's lymphoma, breast cancer, and squamous cell carcinoma in remission Hospital Course: Patient is a very pleasant 70-year-old female with a past medical history of Non-Hodgkin's lymphoma status post chemotherapy, breast cancer status post l umpectomy, squamous cell carcinoma, DVT, lymphoma, and GERD. She presented to the emergency department on 03/24/21 with a chief complaint of chest pain. Patient reports while at work yesterday afternoon she began feeling pressure to her midsternal chest. Patient states this pain is a constant pressure-like sensation that radiates directly into her back. Patient states pain is worst with exertion and improves with rest but does not go away. Patient reports that she had her [employer] vaccine for Covid 19 virus on 03/21/21 and was concerned so she came to the hospital for evaluation. Patient denies having any cardiac history. She was seen and fully evaluated in the emergency department. Chest x-ray revealed normal sinus rhythm at 94 bpm with no noted T-wave or ST abnormalities showing no signs of acute ischemia. Troponins were trended at less than 0.012, 0.015, and less than 0.012. Chest x-ray was negative for acute cardiopulmonary process showing COPD with stable left apical opacity/pleural parenchymal scarring. D-dimer was elevated at 0.64 and a CTA was completed, negative for pulmonary emboli. Patient was admitted under our services with consultation to cardiology. An echocardiogram was completed revealing an EF greater than 55% with no significant valvular abnormalities. She underwent a Lexiscan stress test which was abnormal and cardiology recommended patient undergo cardiac cath. Cardiac cath revealed critical lesion involving the mid LAD with mild to moderate diffuse disease involving the proximal to mid RCA with ectatic areas in the distal portion of the RCA. Patient underwent stenting of mid LAD by Dr. Kumar. Lipid profile resulting showing an elevated cholesterol of 207. Patient started on atorvastatin 40 mg daily. Patient's condition is stable. TR band removed from right wrist, no signs of redness, bleeding, or hematoma. Pt reports resolution of chest discomfort previously experienced.. She denies having any headache, lightheadedness, dizziness, palpitations, shortness of breath, dyspnea with exertion, or experiencing any numbness/tingling/weakness in her extremities. Patient's condition is stable and she is stable for discharge home at this time. Patient being discharged home on dual antiplatelet therapy with aspirin and Plavix along with atorvastatin. Patient to follow up outpatient with her PCP in 1-2 days and with cardiology in 1 week. Physical exam: Vital signs reviewed and stable. General: Nontoxic, no distress and appears stated age. Derm: Skin warm and dry, normal coloration for ethnicity. Head: Atraumatic, normocephalic and symmetric. Eyes: EOMs intact, no lid lag, and anicteric sclera Mouth: no lip lesions, mucus membranes moist Cardiovascular: regular rate and rhythm with normal S1S2, no murmur, positive posterior tibial pulses bilaterally, and cap refill < 2 seconds. Lungs: Respirations even, regular, and unlabored on room air. Lungs CTA bilaterally, no rhonchi, no rales, no wheezing, and no accessory muscle usage. Abdominal: soft, nontender to palpation, no guarding, no appreciable organomegaly Ext: ROM intact. No gross muscle atrophy, no edema, no contractures Neuro: Speech clear, face symmetrical and CN II-XII grossly intact with no noted focal neuro deficits Psych: Alert and oriented to person, place, time, and situation. Appropriate and pleasant affect. A total of 45 minutes of time were spent preparing this complex discharge summary. Patient Condition at Discharge: Stable Plan - Discharge Summary Discharge Rx Participant: No New Discharge Prescriptions: New Aspirin 81 mg PO DAILY 30 Days #30 tab Atorvastatin [Lipitor] 40 mg PO DAILY 30 Days #30 tab Clopidogrel [Plavix] 75 mg PO DAILY 30 Days #30 tab Continue SUMAtriptan succinate [Imitrex] 50 mg PO DAILY PRN PRN Reason: migraines Omeprazole Magnesium [PriLOSEC OTC] 20 mg PO DAILY PRN PRN Reason: GERD Discharge Medication List SUMAtriptan succinate [Imitrex] 50 mg PO DAILY PRN 12/08/15 [History] Omeprazole Magnesium [PriLOSEC OTC] 20 mg PO DAILY PRN 03/24/21 [History] Aspirin 81 mg PO DAILY 30 Days #30 tab 03/27/21 [Rx] Atorvastatin [Lipitor] 40 mg PO DAILY 30 Days #30 tab 03/27/21 [Rx] Clopidogrel [Plavix] 75 mg PO DAILY 30 Days #30 tab 03/27/21 [Rx] Follow up Appointment(s)/Referral(s): Kavya Sigala MD [Primary Care Provider] - 1-2 days Sarita Potter MD [STAFF PHYSICIAN] - 1 Week (office will call you with day and time) Patient Instructions/Handouts: Left Heart Catheterization (DC), After Radial Heart Catheterization (GEN) Activity/Diet/Wound Care/Special Instructions: Activity: As tolerated. Take breaks as needed. Diet: Heart healthy and carb consistent diet. Avoid salts, or foods with hidden salts such as canned or boxed foods and frozen dinners. Extra salt makes your heart work harder and traps the fluid in your body for longer. Special Instructions: Take all of your medications as directed and remember to keep all of your doctor's appointments and follow-up as needed. Wishing you a very happy and healthy New Year!!! Thank you for allowing us to participate in your care, it was truly a pleasure having you for our patient!!! Discharge/Stand Alone Forms: Work/School Release Discharge Disposition: HOME SELF-CARE <Brandon Salinas - Last Filed: 03/28/21 10:51> Providers Date of admission: 03/26/21 08:47 Attending physician: Tiago Malone MD Consults: 03/24/21 17:57 Consult Physician Urgent Consulting Provider: [facility] Consult Reason/Comments: Chest pain Do you want consulting provider notified?: Yes 03/26/21 11:35 Consult Physician Routine Consulting Provider: [facility] Consult Reason/Comments: Post Interventional patient Do you want consulting provider notified?: Already Contacted Primary care physician: Kavya Sigala MD Hospital Course: agree with note and plan
--- NOTE | 2021-03-27 11:41 | ECHOS ---
Stress Test Results/Findings: Exam Performed: NM stress lexiscan cardiolite Exam Date: 03/25/21 Reason for Exam: CP Height: 5 ft 3 in Weight: 53.07 kg Protocol: LEXISCAN CARDIOLITE Stage: NA Duration of Exercise: NA Resting Heart Rate: 73 Resting Blood Pressure: 140/87 Maximum Achieved Heart Rate: 121 Maximum Achieved Blood Pressure: 162/86 85% PMHR: 129 100% PMHR: 152 METS: NA Technologist Comment: Stress Test Results/Findings: This is a 70-year-old female with history of metastatic breast CA and hypertension who was admitted to the hospital with chest pain. Cardiac enzymes and EKGs were negative. Stress data: Baseline EKG showed sinus rhythm with normal IN interval and QRS duration. Blood pressure at rest is 140/87, pulse rate of 73. A standard dose of Lexiscan was infused EKGs taken during and after infusion did not reveal any significant changes from baseline. Final impression: #1. Negative Lexiscan stress test #2. Report on the nuclear images to be given by the radiologist CARO
== END 2021-03-27 11:27 | disposition home or self-care (01) | DRG 247 ==
LOC: EC 12:44 → 1SOBS 17:57 → 6NMEDSUR 22:44 → OBSVTOIN 03-26 08:47
PROVIDERS: ADMIT Internal Medicine; ATTEND Internal Medicine
PROC: 027034Z Dilation of Coronary Artery, One Artery with Drug-eluting Intraluminal Device, Percutaneous Approach (ICD-10-PCS; principal; 2021-03-26 11:10)
PROC: 4A023N7 Measurement of Cardiac Sampling and Pressure, Left Heart, Percutaneous Approach (ICD-10-PCS; 2021-03-26 11:10)
PROC: B2111ZZ Fluoroscopy of Multiple Coronary Arteries using Low Osmolar Contrast (ICD-10-PCS; 2021-03-26 11:10)
DX: I25.10 Atherosclerotic heart disease of native coronary artery without angina pectoris (principal); J44.9 Chronic obstructive pulmonary disease, unspecified; E78.00 Pure hypercholesterolemia, unspecified; Z20.822 Contact with and (suspected) exposure to COVID-19; K21.9 Gastro-esophageal reflux disease without esophagitis; G43.909 Migraine, unspecified, not intractable, without status migrainosus; I89.0 Lymphedema, not elsewhere classified; M19.90 Unspecified osteoarthritis, unspecified site; Z85.72 Personal history of non-Hodgkin lymphomas; Z86.718 Personal history of other venous thrombosis and embolism; Z85.3 Personal history of malignant neoplasm of breast; Z87.19 Personal history of other diseases of the digestive system; Z92.21 Personal history of antineoplastic chemotherapy; Z90.710 Acquired absence of both cervix and uterus; Z87.42 Personal history of other diseases of the female genital tract; Z92.3 Personal history of irradiation; Z98.51 Tubal ligation status; Z90.49 Acquired absence of other specified parts of digestive tract; Z90.13 Acquired absence of bilateral breasts and nipples; Z98.890 Other specified postprocedural states; Z88.5 Allergy status to narcotic agent; Z88.8 Allergy status to other drugs, medicaments and biological substances
CPT/HCPCS: 36415; 71046; 71275; 78452; 80048; 80053; 80061; 83735; 83880; 84484; 85025; 85027; 85379; 85610; 85730; 87635; 93005; 93017; 93306; 93458; 94760; 94762; 99285

== ENCOUNTER → 2022-02-11 | Outpatient (CLI) | payer MEDICARE, BC ==
--- NOTE | 2022-02-11 09:46 | MM ---
Reason for Exam: Additional evaluation requested from prior study. Last mammogram was performed 1 year(s) and 1 month(s) ago. Patient History: Menarche at age 17. First Full-Term at age 19. Left ovary removed at age 65. Right ovary removed at age 65. Hysterectomy at age 65. Postmenopausal. Patient has history of breast feeding. Endometrial cancer, age 65. Other cancer, age 46. Breast cancer, right, age 69. Hormonal Contraceptives, starting at age 20 for 1 year. 1970, Bilateral Benign Excisional Biopsy. 03/18/2020, Lumpectomy on the Right side. 03/18/2020, Benign Core Biopsy on the right side. 01/07/2020, Malignant Core Biopsy on the right side. Prior Study Comparison: 12/02/2016 Bilateral Screening Mammogram, [facility]. 12/07/2016 Right Diagnostic Mammogram, [facility]. 02/13/2018 Bilateral Screening Mammogram, [facility]. 12/12/2019 Bilateral Diagnostic Mammogram, [facility]. 01/07/2020 Right Diagnostic Mammogram, [facility]. 01/23/2021 Bilateral Diagnostic Mammogram, [facility]. Tissue Density: The breast tissue is heterogeneously dense. This may lower the sensitivity of mammography. Findings: Analyzed By CAD. Postoperative and posttreatment changes right breast. Partially visualized injection port projecting over the left pectoralis major. Chronic nodularity in both breasts. Benign vascular calcifications. No significant change from prior exams. Overall Assessment: Benign, BI-RAD 2 Management: Diagnostic Mammogram of both breasts in 1 year. 1. Patient should continue monthly self breast exams. 2. A clinical breast exam by your physician is recommended on an annual basis. 3. This exam should not preclude additional follow-up of suspicious palpable abnormalities. Results were given to the patient verbally at the time of exam. Electronically signed and approved by: Cathleen Godwin M.D. Radiologist
[2022-02-11 10:40] LABS: ALT 12 U/L (8-44); AST 16 U/L (13-35); African American GFR (CKD) 66.6 (60.0-200.0); Albumin 3.9 g/dL (3.8-4.9); Albumin/Globulin Ratio 2.44 (1.60-3.17); Alkaline Phosphatase 92 U/L (41-126); Blood Urea Nitrogen 13.1 mg/dL (9.0-27.0); Calcium 9.3 mg/dL (8.7-10.3); Carbon Dioxide 26.9 mmol/L (20.0-27.5); Chloride 106 mmol/L (96-109); Globulin 1.6 g/dL (1.6-3.3); Glucose 98 mg/dL (70-110); LDL Cholesterol,Calculated 133.9 mg/dL (0.0-131.0); Non-African American GFR(CKD) 57.4 (60.0-200.0); Potassium 4.3 mmol/L (3.5-5.5); Sodium 141 mmol/L (135-145); Total Protein 5.5 g/dL (6.2-8.2); VLDL Calculation 16.68 mg/dL (5.00-40.00)
[2022-02-11 10:41] LABS: Chol/HDL Ratio 3.41 Ratio
== END | disposition home or self-care (01) ==
LOC: RADMAMWWP 07:30
PROVIDERS: ATTEND Obstetrics & Gynecology
DX: R92.8 Other abnormal and inconclusive findings on diagnostic imaging of breast (principal); Z85.3 Personal history of malignant neoplasm of breast; E78.2 Mixed hyperlipidemia
CPT/HCPCS: 80061; 80053; 77066; G0279; 77062

== ENCOUNTER → 2022-06-03 | Outpatient (CLI) | payer MEDICARE, BC ==
--- NOTE | 2022-06-03 16:09 | CT ---
EXAMINATION TYPE: CT urogram wo/w con CT DLP: 1865 mGycm, Automated exposure control for dose reduction was used. DATE OF EXAM: 06/03/2022 3:20 PM COMPARISON: 11/01/2019 CLINICAL INDICATION:Female, 71 years old with history of R31.0, hematuria TECHNIQUE: Urogram with imaging of the abdomen and pelvis. Coronal and sagittal reformats were performed. 2D and 3D reconstructions are performed to assist visualization of the urinary tract on a separate workstat ion. Contrast used:80cc mL of Isovue 370 without and with IV Contrast, Oral contrast used: None. FINDINGS: LOWER CHEST: Right lower lobe calcified granuloma. Streaky atelectasis/scarring. Trace right pleural effusion. GENITOURINARY: RIGHT KIDNEY AND URETER: Extrarenal pelvis. No calculi. No hydronephrosis or hydroureter. No renal ma ss or other lesions. No urothelial lesions: no filling defect, dilation, stricture or wall thickening . The ureter is somewhat dilated in the midportion felt to be secondary to the right common iliac art britni impressing upon the as it enters the pelvis. This is best appreciated on delayed imaging. LEFT KIDNEY AND URETER: Extrarenal pelvis No calculi. No hydronephrosis or hydroureter. No renal mass or other lesions. No urothelial lesions: no filling defect, dilation, stricture or wall thickening. Left inferior pole subcentimeter renal cyst. URINARY BLADDER: Not optimally distended. Limited evaluation secondary to partial filling of the blad karen with excreted IV contrast. No calculi or obvious mass. REPRODUCTIVE: The uterus is surgically absent. ABDOMEN LIVER: Scattered simple appearing hepatic cysts. GALLBLADDER AND BILE DUCTS: The gallbladder is surgically absent. Common bilaterally measuring up to 8 mm which can be seen in setting of postcholecystectomy physiology. PANCREAS: Unremarkable. SPLEEN: Calcified granulomas scattered throughout the spleen. ADRENAL GLANDS: Unremarkable. STOMACH AND BOWEL: . No evidence of bowel obstruction. PERITONEUM: No evidence of pneumoperitoneum or adenopathy. Trace free fluid is seen within the pelvi s. VASCULATURE: Pelvic phleboliths are present Scattered atherosclerosis of the arterial vasculature. MUSCULOSKELETAL: No acute osseous abnormalities, multilevel disc degeneration changes throughout the spine with disc space narrowing, osteophytes and endplate sclerosis. Vacuum disc phenomenon is also p resent. LYMPH NODES: No gross evidence for lymphadenopathy. SOFT TISSUE/ABDOMINAL WALL: Unremarkable IMPRESSION: 1. No evidence of urolithiasis or renal/urothelial neoplasm. 2. Trace free fluid in the pelvis. Etiology unclear.
== END | disposition home or self-care (01) ==
LOC: RADCTMAIN 13:47
PROVIDERS: ATTEND Urology
DX: R31.0 Gross hematuria (principal)
CPT/HCPCS: 82565; 84520; 74178; 36415; 74400; Q9967

== ENCOUNTER → 2023-02-23 | Outpatient (CLI) | payer MEDICARE, BC ==
--- NOTE | 2023-02-24 07:39 | MM ---
Reason for Exam: Hx of breast cancer, conservation therapy. Last screening mammogram was performed 12 month(s) ago. Patient History: Menarche at age 17. First Full-Term at age 19. Left ovary removed at age 65. Right ovary removed at age 65. Hysterectomy at age 65. Postmenopausal. Patient has history of breast feeding. Endometrial cancer, age 65. Other cancer, age 46. Breast cancer, right, age 69. Hormonal Contraceptives, starting at age 20 for 1 year. 1970, Bilateral Benign Excisional Biopsy. 03/18/2020, Lumpectomy on the Right side. 03/18/2020, Benign Core Biopsy on the right side. 01/07/2020, Malignant Core Biopsy on the right side. Tissue Density: The breast tissue is heterogeneously dense. This may lower the sensitivity of mammography. Findings: Analyzed By CAD. Pattern appears symmetrical and stable. Multiple chronic nodules are present bilaterally. No significant interval changes are evident. There are surgical clips in the right prior lumpectomy. No suspicious groups of microcalcifications, spiculated or lobular masses, architectural distortion or other secondary signs of malignancy are mammographically apparent. Overall Assessment: Benign, BI-RAD 2 Management: Diagnostic Mammogram of both breasts in 1 year. A negative mammogram report should not preclude additional follow up of suspicious palpable abnormalities. Patient should continue monthly self breast exam. A clinical breast exam by your physician is recommended on an annual basis and results should be correlated with mammographic findings. Electronically signed and approved by: Chung Magaña D.O. Radiologis
== END | disposition home or self-care (01) ==
LOC: RADMAMWWP 14:08
PROVIDERS: ATTEND Obstetrics & Gynecology
DX: R92.333 Mammographic heterogeneous density, bilateral breasts (principal); Z85.3 Personal history of malignant neoplasm of breast; Z78.0 Asymptomatic menopausal state
CPT/HCPCS: 77066; G0279; 77062

== ENCOUNTER 2024-08-19 23:31 | Observation (INO) | payer MEDICARE, BC ==
[2024-08-20] MEDS: SODIUM CHLORIDE 0.9% 1,000 ML IV STA (00:27)
[2024-08-20 00:32] LABS: Basophils # (A) 0.01 10*3/uL (0.00-0.10); Basophils % (A) 0.4 %; Eosinophils # (A) 0.07 10*3/uL (0.04-0.35); Eosinophils % (A) 2.7 %; HCT 28.3 % (37.2-46.3); HGB 9.6 g/dL (12.0-15.0); Lymphocytes # (A) 0.18 10*3/uL (0.90-5.00); Lymphocytes % (A) 7.1 %; MCH 32.8 pg (27.0-32.0); MCHC 33.9 g/dL (32.0-37.0); MCV 96.6 fL (80.0-97.0); Mean Platelet Volume 9.5 fL (9.5-12.2); Monocytes # (A) 0.07 10*3/uL (0.20-1.00); Monocytes % (A) 2.7 %; Neutrophils # (A) 2.21 10*3/uL (1.80-7.70); Neutrophils % (A) 86.7 %; Platelet Count 312 10*3/uL (140-440); RBC 2.93 10*6/uL (4.10-5.20); WBC 2.55 10*3/uL (4.50-10.00)
[2024-08-20 00:35] LABS: ALT 29 U/L (4-34); AST 53 U/L (14-36); African American GFR (CKD) 43 (>60 ml/min/1.73 sqM); Albumin 2.5 g/dL (3.5-5.0); Alkaline Phosphatase 95 U/L (38-126); Anion Gap 8 mmol/L; Blood Urea Nitrogen 20 mg/dL (7-17); Carbon Dioxide 21 mmol/L (22-30); Chloride 105 mmol/L (98-107); Glucose 100 mg/dL (74-99); Magnesium 1.9 mg/dL (1.6-2.3); Non-African American GFR(CKD) 38 (>60 ml/min/1.73 sqM); Potassium 5.6 mmol/L (3.5-5.1); Sodium 134 mmol/L (137-145); Total Bilirubin 0.5 mg/dL (0.2-1.3); Total Protein 4.6 g/dL (6.3-8.2)
[2024-08-20 00:39] LABS: Prothrombin Time 10.7 sec (10.0-12.5)
[2024-08-20 00:40] LABS: Calcium 5.9 mg/dL (8.4-10.2)
[2024-08-20 00:50] LABS: Appearance,Urine Cloudy (Clear); Bacteria,Urine Rare /hpf; Bilirubin,Urine Negative (Negative); Blood,Urine Small (Negative); Color,Urine Colorless; Glucose,Urine (UA) Negative (Negative); Ketones,Urine Trace (Negative); Leukocyte Esterase,Urine Large (Negative); Mucus,Urine Rare /hpf; Nitrite,Urine Negative (Negative); PH, Urine 6.5 (5.0-8.0); Protein,Urine Trace (Negative); RBC,Urine 14 /hpf (0-5); Squamous Epithelial Cell,Urine <1 /hpf (0-4); Urobilinogen,Urine <2.0 mg/dL (<2.0); WBC,Urine 157 /hpf (0-5)
[2024-08-20 00:54] LABS: Partial Thromboplastin Time 18.7 sec (22.0-30.0)
[2024-08-20 00:56] LABS: Influenza A Not Detected (Not Detectd); Influenza B Not Detected (Not Detectd); RSV Not Detected (Not Detectd)
[2024-08-20 01:13] LABS: Glucose,Whole Blood 107 mg/dL (70-110)
[2024-08-20] MEDS: SODIUM ZIRCONIUM CYCLOSILICATE 10 GM PACKET PO ONE (01:13)
[2024-08-20] MEDS: CALCIUM GLUCONATE IN NACL 2 GM in SALINE 1 100ML.BAG IVPB ONE (01:13)
[2024-08-20] MEDS: CALCIUM CARBONATE 500 MG CHEWABLE PO STA (01:13)
[2024-08-20] MEDS: INSULIN REGULAR 100 UNIT/ML VIAL (IV) IV ONE (01:14)
[2024-08-20] MEDS: DEXTROSE 50% SYRINGE 50 ML IVP ONE (01:15)
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
[2024-08-20] MEDS: ACETAMINOPHEN TAB 500 MG TAB PO STA (01:39)
[2024-08-20] MEDS: ONDANSETRON 4 MG/2 ML VIAL IVP STA (01:39)
--- NOTE | 2024-08-20 01:42 | XR ---
EXAM: XR Chest, 1 View CLINICAL HISTORY: ITS.REASON XR Reason: dysrhythmia TECHNIQUE: Frontal view of the chest. COMPARISON: No relevant prior studies available. IMPRESSION: Large right pleural effusion Mild pulmonary edema
[2024-08-20 01:46] LABS: T4, Free (Free Thyroxine) 1.73 ng/dL (0.78-2.19)
[2024-08-20 01:46] LABS: Glucose,Whole Blood 132 mg/dL (70-110)
[2024-08-20] MEDS: CEFEPIME 1 GM in SODIUM CHLORIDE 0.9% 50 ML IVPB STA (01:50)
[2024-08-20] MEDS ORDERED: ALPRAZolam 0.25 MG TAB PO PRN (01:54)
[2024-08-20] MEDS ORDERED: NALOXONE 0.4 MG/ML 1 ML VIAL IV PRN (01:54)
[2024-08-20 06:44] LABS: Potassium 4.2 mmol/L (3.5-5.1)
[2024-08-20] MEDS: CALCIUM CARB-VIT D 500 MG-5 MCG TAB PO SCH (06:45)
[2024-08-20] MEDS ORDERED: ACETAMINOPHEN TAB 325 MG TAB PO PRN (08:00)
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
[2024-08-20] MEDS: FAMOTIDINE 20 MG TAB PO SCH (08:53)
[2024-08-20] MEDS: APIXABAN 5 MG TAB PO SCH (08:54)
[2024-08-20] MEDS: PANTOPRAZOLE 40 MG TABLET PO SCH (08:54)
[2024-08-20 10:32] LABS: African American GFR (CKD) 43 (>60 ml/min/1.73 sqM); Anion Gap 1 mmol/L; Blood Urea Nitrogen 19 mg/dL (7-17); Calcium 8.4 mg/dL (8.4-10.2); Carbon Dioxide 24 mmol/L (22-30); Chloride 109 mmol/L (98-107); Glucose 112 mg/dL (74-99); Non-African American GFR(CKD) 37 (>60 ml/min/1.73 sqM); Potassium 4.3 mmol/L (3.5-5.1); Sodium 134 mmol/L (137-145)
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
[2024-08-21 04:58] VITALS: RESP 18
[2024-08-21] MEDS: METOPROLOL TARTRATE 12.5 MG TAB PO SCH (09:52)
[2024-08-21] MEDS: VERAPAMIL SR 120 MG TABLET.ER PO SCH (09:56)
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
[2024-08-21 10:42] VITALS: TEMP 97.9
[2024-08-21 10:54] LABS: African American GFR (CKD) 42 (>60 ml/min/1.73 sqM); Anion Gap 2 mmol/L; Blood Urea Nitrogen 17 mg/dL (7-17); Calcium 8.5 mg/dL (8.4-10.2); Carbon Dioxide 24 mmol/L (22-30); Chloride 108 mmol/L (98-107); Glucose 87 mg/dL (74-99); Non-African American GFR(CKD) 37 (>60 ml/min/1.73 sqM); Potassium 4.3 mmol/L (3.5-5.1); Sodium 134 mmol/L (137-145)
--- NOTE | 2024-08-21 11:27 | CA ---
Transthoracic Echo Report Name: Sandra Jurado Age: 73 Gender: F : 1950 Exam Date: 08/20/2024 15:00 Exam Location: [place] Ht (in): 62 Wt (lb): 126 Ordering Physician: Xiomara Sanchez MD Attending/Referring Phys: Radiator Fitter Kirsten Bustillo RDCS Procedure CPT: Indications: svt Cardiac Hx: Technical Quality: Good Contrast 1: Total Dose (mL): Contrast 2: Total Dose (mL): MEASUREMENTS (Male / Female) Normal Values 2D ECHO LV Diastolic Diameter PLAX 4.5 cm 4.2 - 5.9 / 3.9 - 5.3 cm LV Systolic Diameter PLAX 3.4 cm IVS Diastolic Thickness 0.9 cm 0.6 - 1.0 / 0.6 - 0.9 cm LVPW Diastolic Thickness 0.8 cm 0.6 - 1.0 / 0.6 - 0.9 cm LV Relative Wall Thickness 0.4 RV Internal Dim ED PLAX 2.1 cm LA Systolic Diameter LX 3.6 cm 3.0 - 4.0 / 2.7 - 3.8 cm LV Diastolic Volume MOD BP 68.4 cm??? 67 - 155 / 56 - 104 cm??? LV Systolic Volume MOD BP 47.2 cm??? 22 - 58 / 19 - 49 cm??? LV Ejection Fraction MOD BP 31.1 % >= 55 % LV Cardiac Index MOD BP 1433.3 cm???/min???m??? LV Diastolic Volume MOD 4C 68.6 cm??? LV Systolic Volume MOD 4C 34.6 cm??? LV Ejection Fraction MOD 4C 49.5 % LV Cardiac Index MOD 4C 2288.2 cm???/min???m??? LV Diastolic Length 4C 6.5 cm LV Systolic Length 4C 5.5 cm LV Diastolic Volume MOD 2C 62.5 cm??? LV Systolic Volume MOD 2C 53.1 cm??? LV Ejection Fraction MOD 2C 15.1 % LV Cardiac Index MOD 2C 633.4 cm???/min???m??? LV Diastolic Length 2C 7.3 cm LV Systolic Length 2C 6.7 cm LA Volume 39.7 cm??? 18 - 58 / 22 - 52 cm??? LA Volume Index 25.0 cm???/m??? 16 - 28 cm???/m??? M-MODE Aortic Root Diameter MM 2.7 cm LA Systolic Diameter MM 3.7 cm LA Ao Ratio MM 1.4 AV Cusp Separation MM 1.7 cm DOPPLER AI Peak Velocity 442.7 cm/s AI Peak Gradient 78.4 mmHg AI Pressure Half Time 394.2 ms MV Area PHT 3.8 cm??? Mitral E Point Velocity 110.1 cm/s Mitral A Point Velocity 117.7 cm/s Mitral E to A Ratio 0.9 MV Deceleration Time 198.6 ms TR Peak Velocity 248.7 cm/s TR Peak Gradient 24.7 mmHg FINDINGS Left Ventricle Left ventricular ejection fraction is estimated at 35-40 %. Moderately to severely decreased left ventricular ejection fraction. Left ventricular cavity size normal. Left ventricular wall thickness normal. Inferior and inferoseptal hypokinesis Right Ventricle Normal right ventricular size and function. Right ventricular systolic pressure within normal limits. Right Atrium Normal right atrial size. Left Atrium Mild left atrial dilatation. Mitral Valve Mitral valve thickened. Moderate mitral regurgitation. No mitral stenosis. Eccentric. Aortic Valve Trileaflet aortic valve. Mild to moderate aortic regurgitation. No aortic stenosis. Tricuspid Valve Structurally normal tricuspid valve. Mild to moderate tricuspid regurgitation. No tricuspid stenosis. Pulmonic Valve Structurally normal pulmonic valve. Mild pulmonic regurgitation. No pulmonic stenosis. Pericardium Small pericardial effusion. Pericardial effusion located anteriorly. Aorta Normal size aortic root and proximal ascending aorta. CONCLUSIONS 1. Moderately to severely impaired left ventricular systolic function with segmental wall motion abnormality 2. Moderate mitral regurgitation 3. Mild to moderate aortic and tricuspid regurgitation Previewed by: Dr. Chuy Kumar MD (Electronically Signed) Final Date: 21 August 2024 11:26
--- NOTE | 2024-08-21 12:06 | P.DS ---
Providers Date of admission: 08/20/24 01:54 Expected date of discharge: 08/21/24 Attending physician: Shilo Sam MD Consults: 08/20/24 01:54 Consult Physician Urgent Consulting Provider: Elmira Alegre Consult Reason/Comments: hypocalcemia, CKD Do you want consulting provider notified?: Yes, Notify in am 08/20/24 08:27 Consult Physician Routine Consulting Provider: Josh Gregory Consult Reason/Comments: large right pleural effusion Do you want consulting provider notified?: Yes 08/20/24 10:07 Consult Physician Routine Consulting Provider: Jung Kam Consult Reason/Comments: svt Do you want consulting provider notified?: Yes Primary care physician: Enid Olvera MD Hospital Course: 73 year old F with PMH of non-Hodgkin's lymphoma, cervical squamous cell cancer, right sided breast cancer, left lung pleural effusions with multiple thoracentesis eventual thoracotomy and pleurodesis, right lung pleural effusion with PleurX catheter, DVT anticoagulated with Eliquis and recent treatment for stage IV ureteral cancer with metastasis receiving palliative chemotherapy at [facility] presented to the ED for palpitations. Patient noted to be in SVT by EMS received adenosine and vagal maneuvers. In the ED she underwent extensive evaluation. BP 149/91, HR 130, T 97F, RR 15, 97% on RA. CBC, Coag panel, CMP significant WBC 2.55, RBC 2.93, Hg 9.6, Hct 28.3, APTT 18.7, Na 134, K 5.6, bicarb 21, BUN 20, Cr 1.41, glu 100, Ca 5.9, AST 53, alb 2.5. UA large LE with 157 WBCs. COVID, RSV, Flu neg. Trop 0.051, 0.098, 0.098 with EKG showing sinus tachycardia with PVCs. CXR showed large R pleural effusion. Patient was admitted for further workup and management. Cardiology consulted, Echo showed EF 30-35%, mod MR, mild-mod AR/TR. Add Metoprolol and Verapamil and cleared the patient for discharge. Pulmonary consulted, recommended continued management and signed off. Nephrology consulted for hypocalcemia. Received 2g Ca gluconate in the ED. PTH 104, Vit D 8.2. Stared on Vit D2 50k units Qweekly. 08/21 Patient was seen and examined. Feeling well. BMP significant for Na 134, Cl 108, Cr 1.44. General: no distress, appears at stated age Derm: warm, dry Head: atraumatic, normocephalic, symmetric Mouth: no lip lesion, mucus membranes moist Cardiovascular: S1 S2 tachy. No murmur. Lungs: Decreased BS R>L, no accessory muscle use Ext: no gross muscle atrophy, no edema, no contractures Neuro: No focal neurologic deficits. Psych: AOx3 Based on my assessment of this patient, this patient meets a high complexity level of care. SVT: Resolved. Cardiology recommends Verapamil 120 mg PO QD + Metoprolol 12.5 mg PO BID. Patient refusing Metoprolol. Cardiology has cleared the patient for discharge. UTI: Continue Rocephin 2g IV QD. Awaiting UCx. Troponin elevation: Likely demand ischemia from SVT. Cardiology has cleared the patient for discharge. Normocytic anemia with Leukopenia in the setting of metastatic malignancy to the bone as well as chemotherapy: No signs of active bleeding. HFrEF: New diagnosis. Metoprolol as above. Would benefit from ACEi, K sparing diuretic and SGLT2. Will defer to Cardiology. PETER on CKD 3a: Appears stable. Nephrology on board. Large R pleural effusion: Continue PleurX catheter management. Pulmonary on board. HypoCa: Due to low Vit D. D2 50k PO Qweekly. Ca carbonate 500 mg PO QHS. History of DVT: Eliquis 5 mg PO BID. History of stage 4 ureteral Ca on palliative chemotherapy: Follow up with Oncology at [place]. Resolved: HyperK, metabolic acidosis Plans for discharge once UCx results. CODE STATUS: FULL CODE DVT Prophylaxis: Eliquis GI Prophylaxis: Protonix PO Designated medical POA if patient is not able to make medical decisions for themselves: I have reviewed the following cruise consultant notes: Pulmonary, Cardio, Nephro. I have reviewed the results of the following tests: BMP, Echo, Vit D, PTH, TSH/FT4. I have ordered the following tests: I have discussed the care of this patient with the following independent historian: I have independently interpreted the following test below: I have discussed the management of this patient with the following physician: Patient Condition at Discharge: Stable Plan - Discharge Summary Discharge Rx Participant: Yes New Discharge Prescriptions: No Action Pantoprazole [Protonix] 40 mg PO DAILY Ferrous Sulfate [Feosol] 325 mg PO DAILY Apixaban [Eliquis] 5 mg PO BID Bumetanide [Bumex] 1 mg PO DAILY Discharge Medication List Apixaban [Eliquis] 5 mg PO BID 08/20/24 [History] Bumetanide [Bumex] 1 mg PO DAILY 08/20/24 [History] Ferrous Sulfate [Feosol] 325 mg PO DAILY 08/20/24 [History] Pantoprazole [Protonix] 40 mg PO DAILY 08/20/24 [History] Follow up Appointment(s)/Referral(s): Enid Olvera MD [Primary Care Provider] - 1-2 days
[2024-08-21] MEDS: ERGOCALCIFEROL 1,250 MCG (50,000 IU) CAPSULE PO SCH (12:29)
--- NOTE | 2024-08-21 12:32 | P.PN ---
Subjective Patient is seen for follow-up for hypocalcemia. Calcium was 8.5 today Significant nutritional vitamin D deficiency noted with vitamin D level at 8.2 No significant complaints today Patient is going home Objective - Vital Signs Vital signs: Vital Signs Temp 97.9 F 08/21/24 08:55 Pulse 103 H 08/21/24 08:55 Resp 18 08/21/24 08:55 BP 134/77 08/21/24 08:55 Pulse Ox 96 08/21/24 08:55 FiO2 Intake & Output 08/20/24 08/21/24 08/21/24 18:59 06:59 18:59 Weight 59.6 kg Other: Voiding Method Toilet # Voids 1 - Exam Patient is awake, comfortable, alert oriented x 3 Examination of the heart S1 and S2 Examination of the lungs bilateral breath sounds are heard Abdomen is soft nontender Examination of lower extremities shows chronic skin changes, edema noted bilaterally 2+ in left leg and 1+ in right leg, lymphedema present as well - Labs CBC & Chem 7: 08/19/24 23:59 08/21/24 10:20 Labs: Abnormal Lab Results - Last 24 Hours (Table) 08/20/24 08/21/24 Range/Units 10:00 10:20 Sodium 134 L (137-145) mmol/L Chloride 108 H (98-107) mmol/L Creatinine 1.44 H (0.52-1.04) mg/dL Free T3 pg/mL 2.10 L (2.30-4.20) pg/mL Microbiology - Last 24 Hours (Table) 08/20/24 00:28 Urine Culture - Final Urine,Voided Assessment and Plan Assessment: 1. Hypocalcemia associated with severe nutritional vitamin D deficiency. Co rrected calcium was 7.1. Status post calcium gluconate and oral calcium supplementation. Serum calcium today is 8.2 2. Acute kidney injury associated with hemodynamic instability with SVT and possible hypovolemia 3. Stage IV lung cancer with bone metastasis maintained on immunotherapy 4. SVT status post adenosine Plan: Aggressive vitamin D supplementation Continue with calcium supplementation Continue off of IV fluids for now. Repeat labs as outpatient
[2024-08-21 12:59] VITALS: BP 157/87; PULSE 108
[2024-08-22] MEDS ORDERED: FAMOTIDINE 20 MG TAB PO SCH (09:00)
[2024-08-24] MEDS ORDERED: ERGOCALCIFEROL 1,250 MCG (50,000 IU) CAPSULE PO SCH (09:00)
== END 2024-08-21 14:52 | disposition home or self-care (01) ==
LOC: EC 23:31 → 3SCARD 08-20 01:54
PROVIDERS: ADMIT Internal Medicine; ATTEND Internal Medicine
DX: I47.10 Supraventricular tachycardia, unspecified (principal); E87.5 Hyperkalemia; E55.9 Vitamin D deficiency, unspecified; N17.9 Acute kidney failure, unspecified; J90 Pleural effusion, not elsewhere classified; I49.3 Ventricular premature depolarization; I25.10 Atherosclerotic heart disease of native coronary artery without angina pectoris; I11.0 Hypertensive heart disease with heart failure; I50.20 Unspecified systolic (congestive) heart failure; N39.0 Urinary tract infection, site not specified; E78.5 Hyperlipidemia, unspecified; E03.8 Other specified hypothyroidism; D72.819 Decreased white blood cell count, unspecified; D64.9 Anemia, unspecified; E87.20 Acidosis, unspecified; C34.90 Malignant neoplasm of unspecified part of unspecified bronchus or lung; C79.51 Secondary malignant neoplasm of bone; C66.9 Malignant neoplasm of unspecified ureter; Z98.61 Coronary angioplasty status; Z92.3 Personal history of irradiation; Z86.718 Personal history of other venous thrombosis and embolism; Z85.72 Personal history of non-Hodgkin lymphomas; Z85.3 Personal history of malignant neoplasm of breast; Z79.899 Other long term (current) drug therapy; Z79.82 Long term (current) use of aspirin; Z79.01 Long term (current) use of anticoagulants; Z88.5 Allergy status to narcotic agent; Z88.8 Allergy status to other drugs, medicaments and biological substances; Z88.6 Allergy status to analgesic agent
CPT/HCPCS: 96366; 96361; 96365; 96367; 96375; 99285; 36415; 93005; 93306; 84439; 84481; 80053; 80048 ×2; 84443; 82330; 83735; 84132; 84484; 85025; 85610; 85730; 81001; 82306; 83970; 87086; 87636; 71045; G0378 ×2; J3360; J2405; J0692; J0696 ×2; J0613